=== PATIENT | male | born 1965 | race Caucasian/White ===

== ENCOUNTER 2016-09-01 05:02 | Inpatient (IN) | payer MEDICAID, OTHER ==
[~2016-09-01] VITALS: Ht 167.6 cm; Wt 81.3 kg
[2016-09-01 06:10] LABS: URINE BLOOD (Dip) POC Negative (NEGATIVE)
[2016-09-01] MEDS ORDERED: SOD CHLORIDE 0.9% 1,000 ML IV ONE (07:00)
[2016-09-01 07:11] LABS: ADD UMIC NO; URINE BILIRUBIN (Dip) NEGATIVE (NEGATIVE); URINE BLOOD (Dip) NEGATIVE (NEGATIVE); URINE COLOR LT. YELLOW (YELLOW); URINE GLUCOSE (Dip) NEGATIVE (NEGATIVE); URINE KETONES (Dip) NEGATIVE (NEGATIVE); URINE LEUKOCYTE ESTERASE (Dip) NEGATIVE (NEGATIVE); URINE NITRITE (Dip) NEGATIVE (NEGATIVE); URINE TOTAL PROTEIN (Dip) NEGATIVE (NEGATIVE); URINE UROBILINOGEN (Dip) 0.2 E.U./dL (0.1-1.0)
[2016-09-01 07:12] LABS: ADD SCAN DIFF NO
[2016-09-01 07:19] LABS: BASOPHILS % 0.3 % (0.0-2.0); EOSINOPHILS % 0.3 % (0.0-7.0); HEMATOCRIT 45.1 % (42.0-52.0); HEMOGLOBIN 16.2 g/dl (14.0-18.0); LYMPHOCYTES % 34.3 % (15.0-51.0); MEAN CORPUSCULAR HEMOGLOBIN 32.8 pg (29.0-33.0); MEAN CORPUSCULAR HGB CONC 35.9 g/dl (32.0-37.0); MEAN CORPUSCULAR VOLUME 91.3 fl (82.0-101.0); MEAN PLATELET VOLUME 10.5 fl (7.4-10.4); MONOCYTE # 0.5 10^3/ul (0.3-0.9); MONOCYTES % 6.2 % (0.0-11.0); NEUTROPHIL # 5.1 10^3/ul (1.6-7.5); NEUTROPHILS % 58.7 % (39.0-77.0); PLATELET COUNT 299 10^3/UL (140-415); RED BLOOD COUNT 4.94 10^6/ul (4.70-6.10); RED CELL DISTRIBUTION WIDTH 12.7 % (11.5-14.5); WHITE BLOOD COUNT 8.7 10^3/ul (4.8-10.8)
[2016-09-01 07:34] LABS: POTASSIUM 3.6 mmol/L (3.5-5.1)
[2016-09-01 07:36] LABS: CREATININE 0.65 mg/dl (0.61-1.24)
[2016-09-01 07:37] LABS: CALCIUM 8.9 mg/dl (8.4-10.2)
--- NOTE | 2016-09-01 08:08 | RADRPT ---
PROCEDURE: CT Lumbar Spine without contrast. CLINICAL INDICATION: Leg weakness. Urine retention. Saddle anesthesia. TECHNIQUE: Noncontrast CT of the lumbar spine was performed with multiplanar reformatted images gen erated from the axial acquired data. The administered radiation dose was CTDI vol = 20.57 mGy, DLP = 765.35 mGy-cm. One or more of the following dose reduction techniques were used: Automated exposur e control, Adjustment of the mA and/or kV according to patient size, or Use of iterative reconstruct ion technique. COMPARISON: There are no similar studies submitted for comparison. FINDINGS: Evaluation for cauda equina is limited on CT. There is normal lumbar lordosis. The vertebral body heights are maintained. There is no destructive osseous lesion. There is no acute fracture. There is limited evaluation for epidural fluid collection and limited evaluation of the spinal cord on CT. T12-L1 : There is no disc herniation, spinal canal, or foraminal stenosis. L1-L2 : There is a 1 mm broad-based disk bulge without spinal canal or foraminal stenosis. L2-L3 : There is a 1 mm broad-based disk bulge without spinal canal or foraminal stenosis. L3-L4 : There is mild disk space narrowing. There is 1 mm of grade 1 anterolisthesis with a broad-b ased pseudo disk bulge migrating 3 mm superiorly in the subligamentous region with mild bilateral fa cet arthropathy without spinal canal stenosis. There is severe left with moderate right foraminal s tenosis impinging the exiting left L3 nerve root. L4-L5 : There is a 2 mm circumferential disk bulge with dorsal disk calcification mildly effacing th e bilateral lateral recesses with mild bilateral facet arthropathy with mild spinal canal stenosis. There is mild to moderate bilateral foraminal stenosis. L5-S1 : There is mild disk space narrowing. There is a 3 mm circumferential disk bulge effacing the bilateral lateral recesses with mild bilateral facet arthropathy and mild spinal canal stenosis. T here is severe bilateral foraminal stenosis impinging the exiting bilateral L5 nerve roots. The sacroiliac joints are intact. A Gates catheter is noted. IMPRESSION: There is limited evaluation for epidural fluid collection and limited evaluation of the spinal cord on CT. 1. No acute fracture. 2. L3-L4 minimal grade 1 anterolisthesis with a broad-based pseudo disk bulge migrating 3 mm superio rly with severe left and moderate right foraminal stenosis impinging the exiting left L3 nerve root. 3. L5-S1 circumferential disk bulge effacing the bilateral lateral recesses with mild spinal canal s tenosis. There is severe bilateral foraminal stenosis impinging the exiting bilateral L5 nerve root s. Noncontrast MRI of the lumbar spine may be performed as clinically warranted. Further findings as detailed above. RPTAT: PP .Bebo Olsen MD, Date Time Electronically viewed and signed by .Bebo Olsen MD, on 09/01/2016 08:07 .F/
[2016-09-01] MEDS ORDERED: DEXAMETHASONE 10 MG/ML 1 ML INJ IV ONE (08:30)
[2016-09-01] MEDS ORDERED: morphine 4 MG/ML VIAL IV STA (08:56)
--- NOTE | 2016-09-01 09:26 | ERA ---
ER Documentation Chief Complaint Date/Time DATE: 09/01/16 TIME: 09:16 Chief Complaint Unable to urinate. pain in the lower legs and pelvic pain HPI This 50-year-old male presents for inability urinate for the last 20 hours, shooting pains down the back of his upper thighs, bilateral leg weakness since yesterday. Denies any specific back pain. Denies any fever chills. Is not an IV drug user. Has no other neurological symptoms, no symptoms above the waist except for the suprapubic pain. ROS All systems reviewed and are negative except as per history of present illness. Medications Home Meds No Active Prescriptions or Reported Meds Allergies Allergies: Coded Allergies: No Known Drug Allergy (Verified Allergy, Unknown, 07/25/14) PMhx/Soc Medical and Surgical Hx: pt denies Medical Hx, pt denies Surgical Hx Hx Alcohol Use: No Hx Substance Use: No Hx Tobacco Use: No Smoking Status: Never smoker Physical Exam Vitals Vital Signs Date Time Temp Pulse Resp B/P Pulse Ox O2 Delivery O2 Flow Rate FiO2 09/01/16 15:14 97.9 83 18 131/96 98 Room Air 09/01/16 13:16 75 16 143/99 98 Room Air 09/01/16 11:14 98.3 87 18 128/90 100 Room Air 09/01/16 09:30 72 16 134/91 99 Room Air 09/01/16 08:32 62 16 126/98 100 Room Air 09/01/16 06:43 98.0 62 16 131/94 100 Room Air 09/01/16 05:38 98.3 74 22 141/100 100 Room Air 09/01/16 05:14 97.0 75 20 142/97 98 Physical Exam Const: [] No distress Head: Atraumatic Eyes: Normal Conjunctiva, PERRLA, EOMI ENT: Normal External Ears, Nose and Mouth. Neck: Full range of motion..~ No meningismus. Resp: Clear to auscultation bilaterally Cardio: Regular rate and rhythm, no murmurs Abd: Soft, non tender, suprapubic fullness, normal bowel sounds Skin: No petechiae or rashes Back: No midline or flank tenderness Ext: No cyanosis, or edema Neur: Awake and alert and oriented 3, cranial nerves II through XII intact, no focal deficits, 5 out of 5 strength all extremities distal and proximal Psych: Normal Mood and Affect Result Diagram: 09/01/16 0700 09/01/16 0700 Results 24 hrs Laboratory Tests Test 09/01/16 06:00 09/01/16 06:13 09/01/16 07:00 09/01/16 09:40 Urine Bilirubin NEGATIVE Urine Clarity CLEAR Urine Color LT. YELLOW Urine Glucose NEGATIVE% Urine Hemoglobin NEGATIVE Urine Ketones NEGATIVE Urine Leukocyte Esterase NEGATIVE Urine Nitrite NEGATIVE Urine Specific [place] 1.010 Urine Total Protein NEGATIVE Urine Urobilinogen 0.2 E.U./dL Urine pH 7.0 Bedside Urine Blood Negative Bedside Urine Glucose (UA) Negative Bedside Urine Ketones (LAB) Negative Bedside Urine Leukocyte Esterase (L Negative Bedside Urine Nitrite (LAB) Negative Bedside Urine Protein (LAB) Negative Bedside Urine pH (LAB) 7.5 Anion Gap 19 Basophils # 0.010^3/ul Basophils % 0.3% Blood Urea Nitrogen 9mg/dl Calcium Level 8.9mg/dl Carbon Dioxide Level 27mmol/L Chloride Level 100mmol/L Creatinine 0.65mg/dl Eosinophils # 0.010^3/ul Eosinophils % 0.3% Glucose Level 102mg/dl Hematocrit 45.1% Hemoglobin 16.2g/dl Lymphocytes # 3.010^3/ul Lymphocytes % 34.3% Mean Corpuscular Hemoglobin 32.8pg Mean Corpuscular Hemoglobin Concent 35.9g/dl Mean Corpuscular Volume 91.3fl Mean Platelet Volume 10.5fl Monocytes # 0.510^3/ul Monocytes % 6.2% Neutrophils # 5.110^3/ul Neutrophils % 58.7% Nucleated Red Blood Cells # 0.010^3/ul Nucleated Red Blood Cells % 0.0/100WBC Platelet Count 53482^3/UL Potassium Level 3.6mmol/L Red Blood Count 4.9410^6/ul Red Cell Distribution Width 12.7% Sodium Level 142mmol/L White Blood Count 8.710^3/ul Activated Partial Thromboplast Time 26.3Sec INR International Normalized Ratio 1.00 Prothrombin Time 13.2Sec Prothrombin Time Ratio 1.0 Current Medications Medications (Trade) Dose Ordered Sig/Alf Route PRN Reason Start Time Stop Time Status Last Admin Dose Admin Sodium Chloride (NS) 1,000 ml @ 1,000 mls/hr Q1H ONCE IV 09/01/16 07:00 3/9/17 07:59 DC 09/01/16 07:03 Dexamethasone (Decadron) 10 mg ONCE ONCE IV 09/01/16 08:30 09/01/16 08:31 DC 09/01/16 09:12 Morphine Sulfate (morphine) 4 mg ONCE STAT IV 09/01/16 08:56 09/01/16 08:57 DC 09/01/16 09:12 Ondansetron HCl (Zofran Inj) 4 mg BRIDGE ORDER PRN IV NAUSEA AND/OR VOMITING 09/01/16 13:00 09/02/16 12:59 Acetaminophen (Tylenol Tab) 650 mg ER BRIDGE PRN PO MILD PAIN/FEVER 09/01/16 13:00 09/02/16 12:59 Procedures/MDM Patient with compression of lesion suspicious for cauda equina syndrome. Currently no demonstratable leg weakness on physical exam of the patient did have urinary retention and shooting pain down his legs as well as reported leg weakness consistent with cauda equina. Indwelling Gates was placed which led to initially 1300 cc of urine and continued drainage up to 1600 cc. Patient had reported metal shrapnel in his eye from an old injury. Administered 10 mg of IV Decadron as well as 4 mg of morphine as patient had some pain shooting down legs but minimal pain after relief from Gates catheterization. CT with contrast was obtained because of reported shrapnel. Shows a circumferential compressive lesion with severe stenosis at L5. I spoke with Dr. Foss, neurosurgeon on-call who requested a preop laboratories as well as CT myelogram. I spoke with Dr. Glez, radiologist, who recommended that we obtain a x-ray of the orbits to see if there is actually any metallic foreign body within the eye, as he believes the MRI is far superior study. Read the x-ray along with Dr. Glez believes that the tiny opacities are most likely artifact as there is an identical pattern on 2 different views. Her proceeding with MRI currently. Patient did have difficulty standing and did have increasing leg numbness in the emergency room. He still has 5 out of 5 strength on testing however when he stands up he is legs start to shake because they feel weak. Spoke with Dr. Estrada will be admitting the patient. Dr. FOSS called me in the emergency room and had read the MRI and saw no surgical need from a compressive lesion that would recommend his symptoms but does recommend neurology follow-up. I have paged Dr. cohen have not received a callback from him. He'll be admitted to the medical surgical floor for neurological evaluation. EKG interpretation: Normal sinus rhythm rate of 61, normal axis, no ST or T- wave changes concerning for acute ischemia Chest x-ray interpretation: No acute process, no obvious dental, pneumothorax, no infiltrates, no fractures X-ray orbits interpretation: No foreign body identified, no fractures. Departure Diagnosis: Primary Impression: Lumbar spine root compression Additional Impressions: Bilateral leg weakness Urinary retention Condition: Serious WILFREDO ISBELL DO Sep 01, 2016 09:26
[2016-09-01 10:04] LABS: PROTIME 13.2 Sec (12.2-14.2)
[2016-09-01 10:05] LABS: PARTIAL THROMBOPLASTIN TIME 26.3 Sec (25.0-35.0)
--- NOTE | 2016-09-01 11:09 | RADRPT ---
PROCEDURE: XR orbits. CLINICAL INDICATION: Orbits for foreign body, MRI. TECHNIQUE: 3 views of the facial bones and are better are available for review. COMPARISON: No prior studies are available for comparison. FINDINGS: The orbits are intact. No orbital fracture is identified. The orbital rims are unremarkable. The facial bones are unremarkable. No nasal fracture is seen. No sinus air-fluid collection is seen. The soft tissues are unremarkable. No radiopaque foreign body is seen. IMPRESSION: 1. No radiopaque foreign body identified. RPTAT: [facility] Physician Virgilio Date Time Electronically viewed and signed by Physician Virgilio on 09/01/2016 11:09 /
--- NOTE | 2016-09-01 12:29 | RADRPT ---
PROCEDURE: Chest x-ray CLINICAL INDICATION: Preop TECHNIQUE: Chest single view COMPARISON: 07/26/2014 FINDINGS: The heart is normal in size. The pulmonary vessels are normal in caliber. The lungs are clear. Th e costophrenic angles are sharp. The visualized bony thorax is unremarkable. IMPRESSION: No acute cardiopulmonary disease. RPTAT: HH .Arnaud Romero MD, Date Time Electronically viewed and signed by .Arnaud Romero MD, on 09/01/2016 12:29 .W/
[2016-09-01] MEDS ORDERED: ONDANSETRON 4 MG INJ IV PRN ×2 (13:00→16:30)
[2016-09-01] MEDS ORDERED: ACETAMINOPHEN 325 MG TAB PO PRN ×2 (13:00→16:30)
[2016-09-01 15:14] VITALS: TEMP 97.9
[2016-09-01 16:00] VITALS: BP 133/91; RESP 16
--- NOTE | 2016-09-01 16:15 | RADRPT ---
PROCEDURE: MR Lumbar Spine without contrast. CLINICAL INDICATION: Pain and numbness in both legs. Unable to urinate. Evaluate for cauda equina syndrome. TECHNIQUE: Multiplanar multisequence MRI of the lumbar spine was performed. COMPARISON: No similar studies are submitted for comparison. FINDINGS: There is a normal lumbar lordosis. The vertebral body heights are maintained. There is no destructive osseous lesion. There are Modic type 1 degenerative changes at L5-S1. Otherwise there is no abnormal bone marrow e lenore. There is disk desiccation from L3-L4 to L5-S1. The conus medullaris is at the L1 level. There is abnormal T2 hyperintense signal within the conus which is not significantly expansile at th e T12-L1 level compatible spinal cord edema. The cauda equina is otherwise unremarkable given limitations of contrast. T12-L1 : There is no disc herniation, spinal canal, or foraminal stenosis. L1-L2 : There is no disc herniation, spinal canal, or foraminal stenosis. L2-L3 : There is no disc herniation, spinal canal, or foraminal stenosis. L3-L4 : There is mild to moderate disk space narrowing. There is 1 mm of grade 1 anterolisthesis wi th a 2 mm broad-based disk pseudo disk bulge and mild bilateral facet arthropathy without spinal can al stenosis. There is moderate bilateral foraminal stenosis contacting the exiting bilateral L3 ner ve roots. L4-L5 : There is a 1 mm circumferential disk bulge with dorsal annular fissure with mild bilateral f acet arthropathy without spinal canal stenosis. There is mild left with mild to moderate right fora nicolas stenosis. L5-S1 : There is a 1 mm circumferential disk bulge without spinal canal stenosis. There is moderate to severe right and mild to moderate left foraminal stenosis with impingement of the exiting right L5 nerve root. The paraspinal musculature are within normal limits. IMPRESSION: 1. Spinal cord T2 hyperintense signal within the conus at the T12-L1 level most compatible with carol ma which is nonspecific. Differential diagnosis includes infectious/inflammatory myelitis, demyelin ation, less likely intramedullary lesion, and unlikely spinal cord infarction cannot be entirely exc luded. Postcontrast imaging may be performed as clinically warranted. 2. Multilevel degenerative changes most pronounced at L5-S1 where there is a minimal circumferential disk bulge with moderate to severe right and mild to moderate left foraminal stenosis with impingem ent of the exiting right L5 nerve root. 3. No acute compression fracture. Further findings as detailed above. These findings were discussed with Dr. Garcia at 04:11 p.m. on September 01, 2016. RPTAT: PP .Bebo Olsen MD, MD Date Time Electronically viewed and signed by .Bebo Olsen MD, on 09/01/2016 16:14 .F/
--- NOTE | 2016-09-01 16:28 | RADRPT ---
PROCEDURE: MRI Thoracic Spine. CLINICAL INDICATION: Mid back pain TECHNIQUE: An MRI of the thoracic spine was performed on a 1.5 hi scanner utilizing the followi ng sequences: Sagittal and axial T2 weighted, axial gradient echo, sagittal T1 weighted and sagittal T2 fat sat COMPARISON: None. FINDINGS: There is a normal kyphosis of the thoracic spine. The vertebral heights and alignment are maintaine d. The marrow signal is unremarkable. There is T2 hyperintensity of the conus medullaris at T12-1 with probable minimal expansion which li klaudia represent infectious/inflammatory etiologies. Other differential consideration includes neoplas m, ischemia or demyelination. Recommend follow-up MRI with contrast for further evaluation. There are multilevel mild degenerative changes of thoracic spine with decreased disk spaces and disk desiccation more pronounced at T6-T7, T7-T8 and T11-T12. T1-2 through T6-7: No significant disk bulge or protrusion is seen. No significant spinal canal or foraminal stenosis. At T7-8, there is 2-3 mm central disk protrusion without significant spinal canal or foraminal steno sis. T8-9 through T11-12: No significant disk bulge or protrusion is seen. No significant spinal canal o r foraminal stenosis. There is 9 mm T2 hyperintense cyst in the superior pole of the right kidney. There is 4 mm due to hyperintense cyst in the right hepatic lobe. IMPRESSION: 1. Signal abnormality of the conus medullaris with probable minimal expansion which likely represen t infectious/inflammatory etiologies. Other differential consideration includes neoplasm, ischemia o r demyelination. Follow-up MRI with contrast can be obtained for further evaluation as clinically wa rranted. 2. Multilevel mild discogenic disease, more pronounced at T6-T7, T7-T8 and T11-T12. 3. At T7-8, there is 2-3 mm central disk protrusion without significant spinal canal or foraminal s tenosis. Findings were discussed with Dr. Garcia by Dr. Olsen 09/01/2016 at 04:11 p.m. RPTAT: HH .Gertrudis Grewal MD, Date Time Electronically viewed and signed by .Gertrudis Grewal MD, on 09/01/2016 16:27 .N/
[2016-09-01] MEDS ORDERED: morphine 2 MG INJ IV PRN (16:30)
[2016-09-01] MEDS ORDERED: BISACODYL (EC) 5 MG TAB PO PRN (16:30)
[2016-09-01] MEDS ORDERED: MAGNESIUM HYDROXIDE 30ML CUP PO PRN (16:30)
[2016-09-01] MEDS ORDERED: HYDROCODONE/APAP (5/325) TAB PO PRN (16:30)
[2016-09-01] MEDS ORDERED: NACL 0.9% 3 ML SYG IV SCH (16:30)
[2016-09-01] MEDS ORDERED: hydrALAzine 20 MG INJ IV PRN (17:00)
--- NOTE | 2016-09-01 18:03 | HP ---
DATE OF ADMISSION: 09/01/2016 TIME OF EVALUATION: 1530 hours. REASON FOR ADMISSION: Unable to urinate, pain in the bilateral lower legs and pelvis. CONSULTATIONS: 1. Dr. Neo Foss, neurosurgery. 2. Dr. Azucena Hamilton, neurology. HISTORY OF PRESENT ILLNESS: This is a 50-year-old male who denies any past medical history who came to the emergency room with a chief complaint of bilateral lower extremity weakness and inability to urinate that started since 5 :00 p.m. on 08/31/2016. The patient verbalized that he has been doing fine until the afternoon of 08/31/2016, then he started feeling bilateral lower extremity weakness and achy pain with numbness. He felt like he wanted to urinate. He stood up, he tried to walk to the restroom, but he could not make it to the restroom and had to sit down. He tried urinating, but could not urinate. He went to a local urgent care and he was given some medications and was sent home. The patient tried to urinate again at 9:00 p.m. on 08/31/2016 without any success. The patient verbalized that he was feeling numb in bilateral gluteal area, all the way back to the feet posteriorly. The patient denied any fecal incontinence. The patient was complaining of urinary overflow incontinence. He denied any fevers or headache. The patient denied any prior similar history. The patient denied any prior injuries, including any back injury. In the emergency room, the patient underwent multiple imaging studies. The patient's lumbar spine MRI showed no acute compression fracture. The patient's lumbar CT also showed no acute fractures. In the emergency room, the patient had a Gates catheter inserted with output of urine. The patient was treated with IV morphine, IV Decadron and IV fluids in the emergency room. A neurosurgery consult was called. PAST MEDICAL HISTORY: Denies. PAST SURGICAL HISTORY: Denies. HOME MEDICATIONS: None. ALLERGIES: NO KNOWN DRUG ALLERGIES. SOCIAL HISTORY: The patient lives at home with his family. 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 Denies any use of tobacco or illicit drugs. Drinks socially. FAMILY HISTORY: Positive for stroke and hypertension in younger sister. REVIEW OF SYSTEMS: A 12-point review of systems was negative other than what is mentioned in history of present illness. PHYSICAL EXAMINATION: VITAL SIGNS: Temperature 97.9, pulse rate 80, respiratory rate 18, blood pressure 131/96, oxygen saturation 98% on room air. GENERAL: This is a well-built, well-nourished male lying in bed in no apparent distress. HEENT: Head normocephalic and atraumatic. Eyes: Anicteric sclerae. Conjunctivae clear. ENT: Nasal septum is midline. Oral mucosa is dry. NECK: Supple. No JVD noticed. RESPIRATORY: Bilaterally clear to auscultation. No adventitious breath sounds heard. No use of accessory muscles of respiration. CARDIAC: Regular rate and rhythm. No murmurs heard. GASTROINTESTINAL: Abdomen soft, nontender and nondistended. Bowel sounds positive in all 4 quadrants. GENITOURINARY: Deferred. EXTREMITIES: No cyanosis, no clubbing, no edema. Peripheral pulses palpable. NEUROLOGIC: The patient is awake, alert and oriented. Equal strength in bilateral upper and lower extremities. No sensory loss in bilateral lower extremities. LABORATORY AND DIAGNOSTIC DATA: WBC 8.7, hemoglobin 16.4, hematocrit 45.1, platelet count 299. Sodium 142, potassium 3.6, chloride 100, carbon dioxide 27 , anion gap 19, BUN 9, creatinine 0.65, glucose 100, calcium 8.9 and PT 13.2, INR 1.03, PTT 26.3. Urinalysis: Urine nitrite negative, leukocyte esterase negative. Chest x-ray: No acute cardiopulmonary disease. No radiopaque foreign body identified. Lumbar spine CT. No acute fracture. At L3 to L4, minimal grade I anterolisthesis with a broad based pseudo disk bulging migrating 3 mm superiorly with severe left and moderate right foraminal stenosis impinging the exiting left L3 nerve root, the site of circumferential disk bulge affecting the bilateral lateral recess with mild spinal canal stenosis. There is severe bilateral foraminal stenosis impinging the exiting bilateral L5 nerve roots. Lumbar spine MRI: Spinal cord T2 hyperintense signal with the conus at the T2 to L1 level, most compatible with edema which is nonspecific. Differential diagnosis includes infectious/inflammatory myelitis, demyelination, less likely intramedullary lesion and unlikely spinal cord infarction. Multilevel degenerative changes most pronounced at L5 to S1. Thoracic spine MRI: Signal abnormality of the conus medullaris with probable minimal expansion, most likely representing infectious/inflammatory etiologies. Other differential considerations include neoplasm, ischemia or demyelination. At T7 to T8, there is a 2 to 3 mm central disk protrusion without significant spinal canal or foraminal stenosis. 12-lead EKG: Normal sinus rhythm. IMPRESSION: This is a 50-year-old male who came to the emergency room with chief complaint of bilateral lower extremity paresthesias and inability to urinate who will be admitted here for further treatment and evaluation. ASSESSMENT AND PLAN: 1. Acute onset of bilateral lower extremity paresthesias and inability to urinate. Etiology unclear. The patient's lumbar spine MRI showing signal abnormality at the conus medullaris with probable minimal expansion, most likely representing infectious/inflammatory etiologies. A neurosurgery consult has already been obtained. As per the discussion with neurosurgeon, the patient will be started on Decadron. The patient does not require any surgical intervention. However, the patient needs neurology evaluation to evaluate for any possible underlying demyelination. Hence, a neurology consult will be ordered. A physical therapy evaluation will be ordered. 2. Urinary retention. Etiology unclear, most probably secondary to #1. The patient will have a Gates catheter inserted after measuring the post-void/post Gates removal residual and if the patient has high residual. Plan. The patient will be admitted to inpatient medical/surgical floor. The patient will be started on a regular diet. The patient will be started on DVT prophylaxis and gastrointestinal prophylaxis. Activities will be bedrest. The patient will remain a FULL CODE. The rest of the patient's management will be based on the clinical course, the results of diagnostic studies, and input from consultants. Based on the patient's clinical presentation, he most probably requires at least 2 midnights' stay for further management and evaluation of the clinical presentation. The case and management of this patient was fully discussed with Dr. Wood. Approximately 50 minutes was spent on the history and physical of this patient. JUICE WOOD MD AM/NTS Conf#: [id number] DID#: [id number] CC: RAFAEL CAREY MD;*EndCC* MTDD
[2016-09-01] MEDS: DEXAMETHASONE 4 MG/ML 1 ML INJ IV SCH ×2 (18:25→23:47)
[2016-09-01] MEDS: D5W-0.45 NACL + KCL 20 MEQ 1,000 ML IV SCH (18:26)
[2016-09-01 19:25] LABS: CANNABINOIDS Negative (NEGATIVE)
[2016-09-01 19:27] LABS: OPIATES Positive (NEGATIVE)
[2016-09-01 19:31] LABS: BARBITURATES Negative (NEGATIVE)
[2016-09-01 19:32] LABS: BENZODIAZEPINES Negative (NEGATIVE); COCAINE Negative (NEGATIVE)
[2016-09-01 19:44] VITALS: BP 122/77; RESP 18
[2016-09-01] MEDS: FAMOTIDINE 20 MG TAB PO SCH (20:28)
--- NOTE | 2016-09-02 01:52 | RADRPT ---
AMENDMENT: 09/02/2016 2:32:03 AM Dniesh Varma. PROCEDURE: MR Cervical Spine without and with contrast. CLINICAL INDICATION: Lower extremity weakness. TECHNIQUE: The study was performed utilizing a Signa HDxt 3 Natalie magnet. The following pulse seq uences were obtained: Axial T1, axial T2, sagittal T1, and sagittal T2 with and without fat saturat ion images. After the administration of 10 cc Magnevist intravenous contrast, axial T1 weighted grayson ges with fat saturation and sagittal T1-weighted images without fat saturation were obtained. Image s were reviewed on a PACS workstation. COMPARISON: None. FINDINGS: Cervical vertebral body heights, signal intensity and alignment are within normal limits. There is no acute fracture or subluxation. The cervical spinal cord is of normal caliber and signa l. There is no abnormal enhancement. At C2-C3, the disk height and signal are within normal limits. There is no central canal or neural foraminal stenosis. At C3-C4, there is disk desiccation and minimal loss of disk height. There is a mild posterior disk osteophyte complex resulting in mild central canal stenosis. There are moderate right and mild lef t neural foraminal stenosis. At C4-C5, there is disk desiccation and minimal loss of disk height. There is a mild posterior disk osteophyte complex resulting in mild central canal stenosis. There is moderate bilateral neural fo raminal stenosis. At C5-C6 , there is dislocation and mild to moderate loss of disk height. There is a mild diffuse d isk osteophyte complex resulting in mild central canal stenosis. There is moderate to severe bilater al neural foraminal stenosis. At C6-C7 , there is disk desiccation and moderate loss of disk height. There is moderate left and m ild right neural foraminal stenosis. At C7-T1, the disk height and signal are within normal limits. There is no central canal or neural foraminal stenosis. There is no paraspinal mass or collection. 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 There is multilevel central canal and neural f oraminal stenosis as described. No abnormal cord signal or enhancement. .Dinesh Ross MDMD Date Time Electronically viewed and signed by .Dinesh Ross MD, on 09/02/2016 02:31 .T/
--- NOTE | 2016-09-02 02:27 | RADRPT ---
PROCEDURE: MR thoracic spine with contrast. CLINICAL INDICATION: Back pain. TECHNIQUE: The study was performed utilizing an HDxt 3 Natalie magnet. Sagittal T2-weighted images were obtained. After the administration of 10 cc Magnevist intravenous contrast, sagittal and axial T1-weighted images with fat saturation were obtained. Images were reviewed on a PACS workstation. COMPARISON: Noncontrast MR done 09/01/2016. FINDINGS: Thoracic vertebral body heights and alignment are within normal limits. The disk height a nd signals are within normal limits. There is no central canal or neural foraminal stenosis. There is no paraspinal mass or collection. There is no abnormal enhancement. IMPRESSION: No abnormal enhancement. .Dinesh Ross MD, Date Time Electronically viewed and signed by .Dinesh Ross MD, MD on 09/02/2016 02:27 .T/
--- NOTE | 2016-09-02 02:39 | RADRPT ---
PROCEDURE: MRI Brain with and without contrast. CLINICAL INDICATION: Lower extremity weakness. TECHNIQUE: An MRI of the brain was performed on a Signa HDxt 3 hi scanner utilizing the followi ng sequences: Axial T1, axial T2 FLAIR, axial T2 FSE, coronal T2 gradient echo, sagittal T1 FLAIR, s agittal T2 FLAIR and axial diffusion-weighted (EPI technique, [id number]) with ADC mapping. After the administration of 10 cc Magnevist intravenous contrast, coronal, sagittal and axial T1-weighted imag es with fat saturation were obtained. Images were viewed on a PACS workstation. COMPARISON: None. FINDINGS: The ventricles and cortical sulci are within normal limits for patient's age. There are scattered s mall foci of increased T2/FLAIR signal intensity within the periventricular and subcortical white ma tter. There are small foci of restricted diffusion within the right parietal lobe extending to the splenium of the right corpus callosum. There are small foci of restricted diffusion within the left parieto-occipital lobe cortex. There is no mass effect or midline shift. There is no acute intrac ranial hemorrhage or abnormal extra-axial collection. There is no abnormal dural, leptomeningeal or parenchymal enhancement. Normal signal voids are seen within the bilateral cavernous carotids. Th e regions of the sella, pineal gland and cervicomedullary junction are unremarkable. Visualized par anasal sinuses and mastoid air cells are clear. IMPRESSION: Small, acute lacunar infarcts within bilateral parieto-occipital lobes and splenium of the right cor pus callosum. Scattered small T2 hyperintensities within the white matter are nonspecific but could represent micr oangiopathic ischemic disease, complicated migraines or vasculitides. .Dinesh Ross MD, MD Date Time Electronically viewed and signed by .Dinesh Ross MD, MD on 09/02/2016 02:39 .T/
[2016-09-02] MEDS: DEXAMETHASONE 4 MG/ML 1 ML INJ IV SCH ×3 (06:00→17:08)
[2016-09-02 06:04] LABS: ADD SCAN DIFF NO
[2016-09-02 06:23] LABS: ALBUMIN 4.4 g/dl (3.3-4.9)
[2016-09-02 06:24] LABS: HEMATOCRIT 46.3 % (42.0-52.0); HEMOGLOBIN 16.4 g/dl (14.0-18.0); LYMPHOCYTES # 1.6 10^3/ul (0.8-2.9); LYMPHOCYTES % 22.6 % (15.0-51.0); MEAN CORPUSCULAR HEMOGLOBIN 32.5 pg (29.0-33.0); MEAN CORPUSCULAR HGB CONC 35.4 g/dl (32.0-37.0); MEAN CORPUSCULAR VOLUME 91.9 fl (82.0-101.0); MEAN PLATELET VOLUME 10.8 fl (7.4-10.4); MONOCYTE # 0.1 10^3/ul (0.3-0.9); MONOCYTES % 1.8 % (0.0-11.0); NEUTROPHIL # 5.4 10^3/ul (1.6-7.5); NEUTROPHILS % 75.2 % (39.0-77.0); PLATELET COUNT 346 10^3/UL (140-415); POTASSIUM 3.9 mmol/L (3.5-5.1); RED BLOOD COUNT 5.04 10^6/ul (4.70-6.10); RED CELL DISTRIBUTION WIDTH 12.8 % (11.5-14.5); WHITE BLOOD COUNT 7.2 10^3/ul (4.8-10.8)
[2016-09-02 06:25] LABS: MAGNESIUM 2.1 mg/dl (1.7-2.5); PHOSPHORUS 3.4 mg/dl (2.5-4.9)
[2016-09-02 06:26] LABS: ALBUMIN/GLOBULIN RATIO 1.37; BILIRUBIN,INDIRECT 0.7 mg/dl (0-1.1); BILIRUBIN,TOTAL 0.7 mg/dl (0.2-1.3); CHOL/HDL RATIO 4.1 RATIO; CREATININE 0.64 mg/dl (0.61-1.24); TOTAL PROTEIN 7.6 g/dl (6.1-8.1)
[2016-09-02 06:55] LABS: THYROID STIMULATING HORMONE 0.374 MIU/L (0.465-4.680)
[2016-09-02 08:00] VITALS: BP 118/77; RESP 18
[2016-09-02] MEDS: FAMOTIDINE 20 MG TAB PO SCH ×2 (08:14→21:39)
[2016-09-02 10:28] VITALS: Ht 167.6 cm; Wt 81.3 kg
[2016-09-02] MEDS: D5W-0.45 NACL + KCL 20 MEQ 1,000 ML IV SCH (12:07)
--- NOTE | 2016-09-02 14:03 | OPR ---
DATE OF OPERATION: 09/01/2016 CONSULTING SERVICE: Neurosurgery. REQUESTING PHYSICIAN: Kaden Hernández MD, with the emergency department. HISTORY OF PRESENT ILLNESS: This is a 50-year-old male without any past medical history and in over all good health, who started having new onset of urinary retention yesterday. The patient has also developed decreased sensation in the perineal area, as well as some pain and paraesthesia radiating down the bilateral lower extremities. The patient has been able to ambulate without any difficulty. Apparently, the patient presented once yesterday with urinary incontinence and has now presented a gain to the emergency department with urinary retention. A Gates catheter was put in in the emergen cy department, that took out over 1000 mL of urine. I was consulted by the emergency department for probable cauda equina syndrome. The patient initially had received just a CT of the lumbar spine b ecause it was believed that the patient had some type of a shrapnel in one of his eyes from an injur y to the eye in the past. I asked for a CT myelogram to be done to further assess the patient's tho racic and lumbar spines; however, the radiologist has reviewed the patient's x-rays of the orbits an d felt that MRI of the thoracic and lumbar spines can be done and that has been done subsequently. The patient denies any prior episodes of urinary retention or decreased sensation in the lower extre mities or the peroneal area in the past. The patient denies any history of malignancy in the past. He also denies any decreased vision or loss of vision temporarily. The patient also denies any brock n or decreased sensation or weakness in his bilateral upper extremities. He also denies any neck o r low back pain. PAST MEDICAL HISTORY: None. PAST SURGICAL HISTORY: None. HOME MEDICATIONS: None. ALLERGIES: NO KNOWN DRUG ALLERGIES. SOCIAL HISTORY: The patient lives with his family. 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 He does not smoke tobacco. He does not use illicit or recreational drugs. He does not drink alcoholic beverag es. FAMILY HISTORY: Noncontributory. REVIEW OF SYSTEMS: Please see above for positives and negatives. PHYSICAL EXAMINATION: The patient is lying in bed next to his . He is awake, alert. He is aleyda ented x4. His language is fluent in [place] and I am able to communicate with the patient with the help of one of the [place]er-speaking nurses on the floor. His face is symmetric. Tongue is midline. Extraocular movements are intact. Pupils are equally round and reactive to light. Muscle bulk an d tone is normal for bilateral upper and lower extremities. Sensation to light touch is preserved f or bilateral upper and lower extremities, except for the perineal area and the buttocks region. [place] p tendon reflexes are 1+ for bilateral upper and lower extremities. Motor strength in the bilateral upper and lower extremities are at least 5-/5 proximally and distally. Straight leg raise does not cause any radiating pain down the bilateral lower extremities greater than 30 degrees. The patient has rectal tone present, although it may be slightly decreased. Gait testing has been deferred per patient request. IMAGING STUDIES: The patient has received MRI of the thoracic and lumbar spines without contrast at my request. The patient does not show any evidence of any significant central or lateral recess amira nosis. There is around moderate bilateral L5-S1 neural foraminal stenosis that could be putting pre ssure on the exiting bilateral L5 nerve roots; however, there is no significant stenosis or compress ion of the cauda equina or the thecal sac. There is also no canal stenosis at the thoracolumbar panda ction; however, there is a subtle T2 hyperintensity in signal changes in the conus medullaris that h as also been noted by the radiologist. The conus does not seem to be expanded, that could be worriso me for an intramedullary tumor, as the radiologist has also noted it is possibly related to an infla mmatory process and less likely an infectious etiology. It may be related to a demyelinating diseas e. ASSESSMENT AND PLAN: This is a patient with new onset of urinary retention since yesterday, as well as some saddle anesthesia. As discussed above, the patient does not have cauda equina or conus med ullaris syndrome; however, the reason for the patient's acute onset symptomatology seems to be more related to an intrinsic disease process involving the spinal cord and the conus medullaris specifica lly. The patient has been started on empiric corticosteroid treatments, as I have explained to the admitting hospitalist, Jamin Brito MD, the patient will require a neurology consultation for furt her evaluation and treatment of the patient's condition. I have also ordered MRI of the brain and c ervical spines with and without contrast, as well as MRI of the thoracic spine with contrast, to be able to further evaluate the patient for other possible etiologies. There is no acute neurosurgical intervention indicated. Most likely the treatment of this condition is nonsurgical. Neurosurgery can be consulted again on an as needed basis. In addition, at my request, the patient's Gates nadia ter was removed. The patient was followed up for several hours. He does not feel his bladder getti ng full. The bladder scan revealed his bladder to have more than 350 mL of urine and the patient is unable to void again. A new Gates catheter has been reinserted. Dictated By: CAMILA NGUYEN MD, SA/HELIO Conf#: [id number] DID#: [id number]
--- NOTE | 2016-09-02 14:12 | CONS ---
Date/Time of Note Date/Time of Note DATE: 09/02/16 TIME: 13:37 Assessment/Plan Assessment/Plan Chief Complaint/Hosp Course 50 year old male with newly diagnosed uncontrolled diabetes, hyperlipidemia presenting with sudden onset of LE numbness below the waist with urinary incontinence, initiated on steroids. Spine imaging suggestive of edema at T12/L1 possible inflammatory/demyelinating etiology pending further workup. MRI Brain also shows punctate bilateral infarcts unclear etiology. Recommendations: 1. T12/L1 edema -will suggest a lumbar puncture to further evaluate for potential underlying inflammatory condition please send CSF Cell Count, Glucose, Protein, Fungal culture, Bacterial culture , Cytology, Flow Cytometry (paired blood test), IgG index, Oligoclonal bands VZV IgG/IgM and PCR if possible, HSV, LEROY, VDRL -may repeat MRI Lumbar spine post contrast imaging only to evaluate for enhancement of the conus and rule out underlying lesion -may continue on steroid regimen for now if symptoms are improving with appropriate sliding scale and PPI 2. bilateral parietal occipital strokes, right splenium stroke -suspect an underlying infectious/inflammatory etiology -2 sets of blood cultures -recheck hemoglobin A1C -ECHO with a bubble study -MRA Head/Neck to evaluate vasculature, r/o vasculitis may hold DVT ppx in anticipation of lumbar puncture PT/OT evaluation will continue to follow Problems: Consultation Date/Type/Reason Admit Date/Time Sep 01, 2016 at 12:45 Date of Consultation: Sep 02, 2016 Type of Consultation: Neurology Reason for Consultation bilateral LE numbness, urinary incontinence T12-L1 edema at conus medullaris bilateral punctate cerebral infarcts Referring Provider: JUICE SESAY NP Hx of Present Illness 50 year old male with previous history of smoking quit over 14 years ago from [facility] 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 He was picking up a car from the mechanics when these symptoms began, when he tried to walk out of the car he developed the sudden onset of numbness. The numbness described is mostly in the bilateral gluteal region radiating to the posterior aspect of the thighs involving genital region as well, sparing the inner thighs. He is unable to control his urine, denies bowel incontinence however he not had a bowel movement in several days. He denies any fevers, no recent travel, no recent rashes or any infections , no sick contacts. On admission jruado catheter was placed, he was given IV morphine, IV decadron and fluids. Neurosurgery contacted on admission, suggested IV steroids, no surgical management required at this time. MRI Lumbar spine showed T2 hyperintense signal within conus at T12-L1 compatible with edema, differentials include infectious/inflammatory myelitis/ demyelination possible spinal cord infarction multilevel degenerative changes L5-S1 moderate to severe right foraminal stenosis, impingement on right L5 nerve root MRI Thoracic Spine signal abnormality of conus, multilevel disc degenerative disease no cord lesions no abnormal enhancement MRI Brain without contrast: punctate infarcts within bilateral parietal occipital lobe and splenium right corpus callosum Pertinent Labs: WBC wnl HIV negative LFTs wnl ESR: 45 LDL: 170 HBA2C: 15.5% LE numbness sensation denies pain urinary incontinence decreased sensation in genital region as well Past Medical History Medical History: no pertinent history Past Surgical History Past Surgical Hx: no surgical history Family History Significant Family History: no pertinent family hx Social History Alcohol Use: none Smoking Status: Former smoker Drug Use: none Exam/Review of Systems Vital Signs Vitals Vital Signs Date Time Temp Pulse Resp B/P Pulse Ox O2 Delivery O2 Flow Rate FiO2 09/02/16 08:00 98.5 86 18 118/77 96 09/01/16 15:14 Room Air Intake and Output 09/01/16 09/01/16 09/02/16 15:00 23:00 07:00 Intake Total 0 ml 0 ml 1040 ml Output Total 2500 ml 0 ml 1550 ml Balance -2500 ml 0 ml -510 ml Exam awake and alert oriented to self, hospital, and date tamazight speaking primarily, absent aphasia follows commands well no neglect no rashes on skin CN: HARDY, VFF, EOMI no nystagmus no facial asymmetry palate upgoing uvula midline scm/trap intact tongue midline Motor: strength is full and equal in all extremities 5/5 throughout in LE as well no atrophy normal muscle bulk and tone, decreased rectal tone Sensory: no sensory level appreciated throughout abdomen or back decreased pin prick sensation below waist on bilateral buttox region as well as posterior thighs up to the knees inner thigh sensation is intact , decreased sensation in L1 and S1,S2 dermatomal region Reflexes 1+ UE, 1+ KJ, trace AJ toes are downgoing Coordination no ataxia Results Result Diagram: 3/10/17 0510 3/10/17 0510 Results 24 hrs Laboratory Tests Test 09/01/16 18:15 09/02/16 05:01 09/02/16 05:10 Urine Amphetamines Screen Negative Urine Barbiturates Negative Urine Benzodiazepines Screen Negative Urine Cannabinoids Negative Urine Cocaine Screen Negative Urine Opiates Screen Positive Free Thyroxine 0.90 Alanine Aminotransferase (ALT/SGPT) 36 Albumin 4.4 Albumin/Globulin Ratio 1.37 Alkaline Phosphatase 42 Anion Gap 20 H Aspartate Amino Transf (AST/SGOT) 27 Basophils # 0.0 Basophils % 0.0 Blood Urea Nitrogen 11 C-Reactive Protein < 0.5 Calcium Level 9.0 Carbon Dioxide Level 21 Chloride Level 104 Cholesterol Level 239 H Cholesterol/HDL Ratio 4.1 Creatinine 0.64 Direct Bilirubin 0.00 Eosinophils # 0.0 Eosinophils % 0.0 Erythrocyte Sedimentation Rate 45 H Globulin 3.20 Glucose Level 142 # HDL Cholesterol 57 HIV (1&2) Antibody NEGATIVE Hematocrit 46.3 Hemoglobin 16.4 Hemoglobin A1c 15.5 H Indirect Bilirubin 0.7 LDL Cholesterol, Calculated 170 Lymphocytes # 1.6 Lymphocytes % 22.6 Magnesium Level 2.1 Mean Corpuscular Hemoglobin 32.5 Mean Corpuscular Hemoglobin Concent 35.4 Mean Corpuscular Volume 91.9 Mean Platelet Volume 10.8 H Monocytes # 0.1 L Monocytes % 1.8 Neutrophils # 5.4 Neutrophils % 75.2 Nucleated Red Blood Cells # 0.0 Nucleated Red Blood Cells % 0.0 Phosphorus Level 3.4 Platelet Count 346 Potassium Level 3.9 Red Blood Count 5.04 Red Cell Distribution Width 12.8 Sodium Level 141 Thyroid Stimulating Hormone (TSH) 0.374 L Total Bilirubin 0.7 Total Protein 7.6 Triglycerides Level 61 White Blood Count 7.2 Medications Medications Current Medications Ondansetron HCl (Zofran Inj) 4 mg Q6H PRN IV NAUSEA AND/OR VOMITING; Start 09/01 at 16:30 Acetaminophen (Tylenol Tab) 650 mg Q6H PRN PO PAIN LEVEL 1-3 OR FEVER; Start at 16:30 Acetaminophen/ Hydrocodone Bitart ([place] (5/325)) 1 tab Q6H PRN PO MODERATE PAIN LEVEL 4-6; Start 09/01/16 at 16:30 Morphine Sulfate (morphine) 2 mg Q4H PRN IV SEVERE PAIN LEVEL 7-10; Start at 16:30 Magnesium Hydroxide (Milk Of Mag) 30 ml DAILY PRN PO CONSTIPATION; Start at 16:30 Bisacodyl (Dulcolax) 5 mg DAILY PRN PO CONSTIPATION; Start 09/01/16 at 16:30 Famotidine (Pepcid) 20 mg Q12 PO Last administered on 09/02/16 08:14; Admin Dose 20 MG; Start 09/01/16 at 21:00 Hydralazine HCl (Apresoline) 10 mg Q6H PRN IV SBP>160; Start 09/01/16 at 17:00 Dexamethasone (Decadron) 4 mg Q6 IV Last administered on 09/02/16 12:07; Admin Dose 4 MG; Start 09/01/16 at 18:00 Influenza Virus Vaccine (Fluzone) 0.5 ml ONCE ONCE IM* ; Start 09/02/16 at 20:00 ; Stop 09/02/16 at 20:01 CARMEN ALLISON MD Sep 02, 2016 13:48
--- NOTE | 2016-09-02 14:29 | PN ---
Date/Time of Note Date/Time of Note DATE: 09/02/16 TIME: 14:18 Assessment/Plan VTE Prophylaxis VTE Prophylaxis Intervention: SCD's Lines/Catheters IV [facility] Type (from [facility]): Peripheral IV Urinary Cath still in place: Yes Reason Cath still needed: urinary retention Assessment/Plan Chief Complaint/Hosp Course 1. Acute onset of bilateral lower extremity paresthesias and inability to urinate. Unclear etiology. The patient's spine MRI showing signal abnormality at the conus medullaris with probable minimal expansion, most likely representing infectious/inflammatory etiologies. Status post evaluation by neurosurgery. No indication for surgical intervention. Status post evaluation by neurology. Further workup ordered including 2D echocardiogram, carotid Doppler study, cultures, and lumbar puncture. Continue the patient on Decadron. 2. Urinary retention. Etiology unclear, most probably secondary to #1. High postvoid residual. Called and talked to the urology panel Dr. Bentley on [address] Bentley agreed to see the patient on 09/03/2016. 3. Acute lacunar infarcts within bilateral parieto-occipital lobes and splenium of the right corpus callosum. Will start the patient on aspirin after the patient has lumbar puncture. We will start the patient on statins. 4. Dyslipidemia. Will start the patient on statins. 5. Hemoglobin A1c of 15.5. Possibly a lab error. Called the laboratory and informed about the same. Will recheck the hemoglobin A1c. 6. Fluids, electrolytes, and nutrition. Low-cholesterol diet. 7. DVT prophylaxis. Bilateral lower extremity sequential compression devices. 8. Gastrointestinal prophylaxis. Histamine 2 receptor blockers. 9. Plan. Obtain 2D echocardiogram. Obtain a lumbar puncture. Obtain blood cultures. Urology consult was obtained. Case discussed with Dr. Green. The plan of the patient was extensively discussed with the neurologist. Problems: Subjective 24 Hr Interval Summary Free Text/Dictation The patient verbalized improvement in bilateral lower extremity pain. Denies any headache. Exam/Review of Systems Vital Signs Vitals Vital Signs Date Time Temp Pulse Resp B/P Pulse Ox O2 Delivery O2 Flow Rate FiO2 09/02/16 08:00 98.5 86 18 118/77 96 09/01/16 15:14 Room Air Intake and Output 09/01/16 09/01/16 09/02/16 15:00 23:00 07:00 Intake Total 0 ml 0 ml 1040 ml Output Total 2500 ml 0 ml 1550 ml Balance -2500 ml 0 ml -510 ml Exam GENERAL: This is a well-built, well-nourished male lying in bed in no apparent distress. HEENT: Head normocephalic and atraumatic. Eyes: Anicteric sclerae. Conjunctivae clear. ENT: Nasal septum is midline. Oral mucosa is dry. NECK: Supple. No JVD noticed. RESPIRATORY: Bilaterally clear to auscultation. No adventitious breath sounds heard. No use of accessory muscles of respiration. CARDIAC: Regular rate and rhythm. No murmurs heard. GASTROINTESTINAL: Abdomen soft, nontender and nondistended. Bowel sounds positive in all 4 quadrants. GENITOURINARY: Deferred. EXTREMITIES: No cyanosis, no clubbing, no edema. Peripheral pulses palpable. NEUROLOGIC: The patient is awake, alert and oriented. Equal strength in bilateral upper and lower extremities. No sensory loss in bilateral lower extremities. Results Result Diagram: 09/02/16 0510 09/02/16 0510 Results 24 hrs Laboratory Tests Test 09/01/16 18:15 09/02/16 05:01 09/02/16 05:10 Urine Amphetamines Screen Negative Urine Barbiturates Negative Urine Benzodiazepines Screen Negative Urine Cannabinoids Negative Urine Cocaine Screen Negative Urine Opiates Screen Positive Free Thyroxine 0.90 Alanine Aminotransferase (ALT/SGPT) 36 Albumin 4.4 Albumin/Globulin Ratio 1.37 Alkaline Phosphatase 42 Anion Gap 20 H Aspartate Amino Transf (AST/SGOT) 27 Basophils # 0.0 Basophils % 0.0 Blood Urea Nitrogen 11 C-Reactive Protein < 0.5 Calcium Level 9.0 Carbon Dioxide Level 21 Chloride Level 104 Cholesterol Level 239 H Cholesterol/HDL Ratio 4.1 Creatinine 0.64 Direct Bilirubin 0.00 Eosinophils # 0.0 Eosinophils % 0.0 Erythrocyte Sedimentation Rate 45 H Globulin 3.20 Glucose Level 142 # HDL Cholesterol 57 HIV (1&2) Antibody NEGATIVE Hematocrit 46.3 Hemoglobin 16.4 Hemoglobin A1c 15.5 H Indirect Bilirubin 0.7 LDL Cholesterol, Calculated 170 Lymphocytes # 1.6 Lymphocytes % 22.6 Magnesium Level 2.1 Mean Corpuscular Hemoglobin 32.5 Mean Corpuscular Hemoglobin Concent 35.4 Mean Corpuscular Volume 91.9 Mean Platelet Volume 10.8 H Monocytes # 0.1 L Monocytes % 1.8 Neutrophils # 5.4 Neutrophils % 75.2 Nucleated Red Blood Cells # 0.0 Nucleated Red Blood Cells % 0.0 Phosphorus Level 3.4 Platelet Count 346 Potassium Level 3.9 Red Blood Count 5.04 Red Cell Distribution Width 12.8 Sodium Level 141 Thyroid Stimulating Hormone (TSH) 0.374 L Total Bilirubin 0.7 Total Protein 7.6 Triglycerides Level 61 White Blood Count 7.2 Medications Medications Current Medications Ondansetron HCl (Zofran Inj) 4 mg Q6H PRN IV NAUSEA AND/OR VOMITING; Start 09/01 at 16:30 Acetaminophen (Tylenol Tab) 650 mg Q6H PRN PO PAIN LEVEL 1-3 OR FEVER; Start at 16:30 Acetaminophen/ Hydrocodone Bitart ([place] (5/325)) 1 tab Q6H PRN PO MODERATE PAIN LEVEL 4-6; Start 09/01/16 at 16:30 Morphine Sulfate (morphine) 2 mg Q4H PRN IV SEVERE PAIN LEVEL 7-10; Start at 16:30 Magnesium Hydroxide (Milk Of Mag) 30 ml DAILY PRN PO CONSTIPATION; Start at 16:30 Bisacodyl (Dulcolax) 5 mg DAILY PRN PO CONSTIPATION; Start 09/01/16 at 16:30 Famotidine (Pepcid) 20 mg Q12 PO Last administered on 09/02/16 08:14; Admin Dose 20 MG; Start 09/01/16 at 21:00 Hydralazine HCl (Apresoline) 10 mg Q6H PRN IV SBP>160; Start 09/01/16 at 17:00 Dexamethasone (Decadron) 4 mg Q6 IV Last administered on 09/02/16 12:07; Admin Dose 4 MG; Start 09/01/16 at 18:00 Influenza Virus Vaccine (Fluzone) 0.5 ml ONCE ONCE IM* ; Start 09/02/16 at 20:00 ; Stop 09/02/16 at 20:01 Docusate Sodium (Colace) 100 mg TID PO ; Start 09/02/16 at 21:00; Status UNV JUICE SESAY NP Sep 02, 2016 14:28
--- NOTE | 2016-09-02 15:37 | RADRPT ---
PROCEDURE: Carotid ultrasound CLINICAL INDICATION: Stroke, carotid bruits TECHNIQUE: Fields scale, color doppler, spectral doppler ultrasound of the bilateral carotid and mauro tebral arteries. This study indirectly references the measurement of the distal ICA diameter as the denominator for s tenosis measurement. Validated velocity measurements with angiographic measurements, velocity criter ia are extrapolated from diameter data as defined by: *Cartoid artery stenosis: fields-scale and Doppl er US diagnosis. Society of Radiologists in Ultrasound Consensus Conference. Radiology 2003; 229: 34 0-346. SRU Consensus Conference Criteria for the Diagnosis of Carotid Artery Stenosis* Degree of Stenosis, % ICA PSV, cm/sec Plaque Estimate, % ICA/CCA PSV Ratio Normal <125 None <2.0 <50 <125 <50 <2.0 50 69 125-230 >50 2.0-4.0 >70 but less than near occlusion >230 >50 <4.0 Near occlusion High, low, or undetectable Visible Variable Total occlusion Undetectable Visible, no detectable lumen Not applicable COMPARISON: No prior studies are available for comparison. FINDINGS: Location Right [id number] cm/sec Prox ICA 83 cm/sec Mid ICA50 cm/sec Dist ICA70 cm/sec ECA74 cm/sec ICA/CCA0.8 Left [id number] cm/sec Prox ICA 73 cm/sec Mid ICA64 cm/sec Dist ICA54 cm/sec ECA81 cm/sec ICA/CCA0.6 Plaque burden: No significant plaque is seen. Antegrade flow is seen within the vertebral arteries bilaterally. IMPRESSION: No evidence of a hemodynamically significant carotid stenosis. RPTAT: AADD .Abelino Walters MD, Date Time Electronically viewed and signed by .Abelino Walters MD, MD on 09/02/2016 15:37 .B/
[2016-09-02 16:41] VITALS: BP 125/81; RESP 18
[2016-09-02] MEDS: DOCUSATE SODIUM 100 MG CAP PO SCH ×2 (17:08→21:39)
--- NOTE | 2016-09-02 17:48 | RADRPT ---
PROCEDURE: Fluoroscopic guided lumbar puncture. CLINICAL INDICATION: Headache. Fever. TECHNIQUE: Prior to the procedure, informed consent was obtained. Risks including bleeding and in fection were explained to the patient. The patient understood and was willing to proceed. A proced ural pause was performed. The patient's name, date of , and procedure to be performed were mauro ified. Using local anesthetic, sterile technique, and fluoroscopic guidance, a 22-gauge spinal needle was a dvanced into the thecal sac at the L4-5 level. Opening pressure was 10 cm of water. 7 mL of clear cerebrospinal fluid was aspirated and sent for laboratory analysis. The needle was removed. A dres sing was applied. The patient tolerated the procedure well. A total of 0.1 minutes of fluoroscopy time was used. COMPARISON: None. FINDINGS: Images demonstrate the needle at the L4-5 level in the thecal sac. IMPRESSION: Satisfactory fluoroscopic guided lumbar puncture. The opening pressure was 10 cm of water. RPTAT: QQ .Sebas Glez MD, MD Date Time Electronically viewed and signed by .Sebas Glez MD, on 09/02/2016 17:47 .R/
--- NOTE | 2016-09-02 19:01 | RADRPT ---
Echocardiogram Report Patient Name: MARIO JUAN Gender: Male Date: 1965 Study Date: 02-Sep-2016 [employer] Intern: Gomez Bennett [facility] Location: [facility] Ref. Physician: JUICE SESAY Quality: Good Procedures: Transthoracic echocardiogram with complete 2D, M-Mode, and doppler examination. Indications: Evaluate Left Ventricular function. 2D/M Mode Doppler Measurement Value Normal Ranges Measurement Value Normal Ranges LVIDd 2D 5.5 3.5 - 5.6 cm AV Peak Yuval 1.4 m/sec LVIDs 2D 2.8 2.1 - 4.1 cm AV Peak PG 8.0 mmHg FS 2D 49.3 % LVOT Peak Yuval 1.4 m/sec LVPWd 2D 0.8 0.6 - 1.1 cm LVOT Peak PG 8.0 mmHg IVSd 2D 1.0 0.6 - 1.1 cm MV E Peak Yuval 0.9 m/sec IVS/LVPW 2D 1.2 MV A Peak Yuval 0.8 m/sec AoR Diam 2D 2.5 2.0 - 3.7 cm MV E/A 1.2 LA/Ao 2D 1 0 - 1 MV Decel Time 102 msec EDV 2D 165.0 cm3 MV E/A 1.2 ESV 2D 21.5 cm3 TR Peak Yuval 2.0 m/sec LA Dimen 2D 3.6 2.3 - 4.0 cm TR Peak PG 17.0 mmHg RVSP 20.0 mmHg Findings Left Ventricle: Normal left ventricular systolic function. Normal left ventricular cavity size. Normal left ventricular wall thickness. Ejection fraction is visually estimated at 65 %. Tissue Doppler/Mitral Doppler indices are within normal limits. Right Ventricle: Normal right ventricular size. Normal right ventricular systolic function. Left Atrium: The left atrium is normal in size. Right Atrium: The right atrium is normal in size. Atrial Septum: Normal atrial septum. Bubble study was performed with and with out valsalva indicating no evidence of intra atrial shunt. Mitral Valve: Normal appearance and function of the mitral valve with trace physiologic regurgitation. Aortic Valve: Normal appearance of the aortic valve. No significant aortic stenosis or insufficiency. Tricuspid Valve: Normal appearance of the tricuspid valve. Estimated peak PA systolic pressure 20 mmHg. There is trace tricuspid regurgitation. Pulmonic Valve: Normal pulmonic valve appearance. Pericardium: Normal pericardium with no significant pericardial effusion. Aorta: Normal aortic root. IVC: Normal size and normal respiratory collapse consistent with normal right atrial pressure. Conclusions 1.Normal left ventricular systolic function. Normal left ventricular cavity size. Normal left ventricular wall thickness. Ejection fraction is visually estimated at 65 %. Tissue Doppler/Mitral Doppler indices are within normal limits. 2.Normal atrial septum. Bubble study was performed with and with out valsalva indicating no evidence of intra atrial shunt. 3.No significant valvular stenosis or regurgitation seen. 4.Estimated peak PA systolic pressure 20 mmHg based on RA pressure of 3 mmHg. Electronically Signed By: Jignesh Monge 02-Sep-2016 19:00:30 -0800 Patient Name: MARIO JUAN Study Date: 02-Sep-[id number]
[2016-09-02 19:32] LABS: GLUCOSE,CSF 78 mg/dl (50-80)
[2016-09-02 19:47] LABS: %CREANATED RBC CSF 0 %; CSF COLOR COLORLESS; CSF VOLUME 4.5 ml; CSF#TUBE COUNT TUBE#4; CSF#TUBES REC'D 4
[2016-09-02] MEDS ORDERED: INFLUENZA VIRUS VACCINE 0.5 ML SYG IM* ONE (20:00)
[2016-09-02 20:56] VITALS: BP 125/72; RESP 16
[2016-09-02] MEDS: ATORVASTATIN 40 MG TAB PO SCH (21:39)
[2016-09-02] MEDS: POLYETHYLENE GLYCOL 17 GM PACKET PO SCH (21:39)
[2016-09-03] MEDS: DEXAMETHASONE 4 MG/ML 1 ML INJ IV SCH ×4 (01:23→17:20)
[2016-09-03 06:17] LABS: ADD SCAN DIFF NO
[2016-09-03 06:25] LABS: BASOPHILS % 0.1 % (0.0-2.0); HEMATOCRIT 46.8 % (42.0-52.0); HEMOGLOBIN 16.2 g/dl (14.0-18.0); LYMPHOCYTES # 1.8 10^3/ul (0.8-2.9); LYMPHOCYTES % 9.9 % (15.0-51.0); MEAN CORPUSCULAR HEMOGLOBIN 32.4 pg (29.0-33.0); MEAN CORPUSCULAR HGB CONC 34.6 g/dl (32.0-37.0); MEAN CORPUSCULAR VOLUME 93.6 fl (82.0-101.0); MONOCYTE # 0.6 10^3/ul (0.3-0.9); MONOCYTES % 2.9 % (0.0-11.0); NEUTROPHIL # 16.2 10^3/ul (1.6-7.5); NEUTROPHILS % 86.6 % (39.0-77.0); PLATELET COUNT 341 10^3/UL (140-415); RED CELL DISTRIBUTION WIDTH 13.1 % (11.5-14.5); WHITE BLOOD COUNT 18.7 10^3/ul (4.8-10.8)
[2016-09-03 06:36] LABS: POTASSIUM 3.9 mmol/L (3.5-5.1)
[2016-09-03 06:38] LABS: CREATININE 0.7 mg/dl (0.61-1.24)
[2016-09-03 06:39] LABS: CALCIUM 9.1 mg/dl (8.4-10.2)
[2016-09-03 06:44] LABS: MAGNESIUM 2.2 mg/dl (1.7-2.5); PHOSPHORUS 4.4 mg/dl (2.5-4.9)
[2016-09-03 07:46] VITALS: BP 111/75; RESP 18
[2016-09-03] MEDS: FAMOTIDINE 20 MG TAB PO SCH ×2 (08:20→21:30)
[2016-09-03] MEDS: POLYETHYLENE GLYCOL 17 GM PACKET PO SCH ×2 (08:21→21:00)
[2016-09-03] MEDS: DOCUSATE SODIUM 100 MG CAP PO SCH ×3 (08:21→21:30)
[2016-09-03] MEDS ORDERED: CHOLECALCIFEROL 400 UNITS TAB PO SCH (09:00)
--- NOTE | 2016-09-03 10:42 | PN ---
Date/Time of Note Date/Time of Note DATE: 09/03/16 TIME: 10:37 Assessment/Plan VTE Prophylaxis VTE Prophylaxis Intervention: SCD's Lines/Catheters IV C[facility] Type (from [facility] Saline Lock Urinary Cath still in place: Yes Reason Cath still needed: urinary retention Assessment/Plan Chief Complaint/Hosp Course 1. Acute onset of bilateral lower extremity paresthesias and inability to urinate. Unclear etiology. The patient's spine MRI showing signal abnormality at the conus medullaris with probable minimal expansion, most likely representing infectious/inflammatory etiologies. Status post evaluation by neurosurgery. No indication for surgical intervention. Status post evaluation by neurology. Continue the patient on Decadron. 2. Urinary retention. Etiology unclear, most probably secondary to #1. High postvoid residual. Called and talked to the urology panel Dr. Bentley on [address] Bentley agreed to see the patient on 09/03/2016. 3. Acute lacunar infarcts within bilateral parieto-occipital lobes and splenium of the right corpus callosum. Will start the patient on aspirin. The patient on statins. 4. Dyslipidemia. Continue statins. 5. Hemoglobin A1c of 15.5. Lab error. Repeat A1C is 5.2. 6. Fluids, electrolytes, and nutrition. Low-cholesterol diet. 7. DVT prophylaxis. Bilateral lower extremity sequential compression devices. 8. Gastrointestinal prophylaxis for histamine 2 receptor blockers. 9. Plan. Await further input from neurology. Await urology evaluation. Case discussed with Dr. Green. The plan of care was explained to the patient's family who was at the bedside. Problems: Subjective 24 Hr Interval Summary Free Text/Dictation Patient complaining lack of urge/feeling to defecate. Exam/Review of Systems Vital Signs Vitals Vital Signs Date Time Temp Pulse Resp B/P Pulse Ox O2 Delivery O2 Flow Rate FiO2 09/03/16 07:46 98.0 67 18 111/75 97 09/01/16 15:14 Room Air Intake and Output 09/02/16 09/02/16 09/03/16 15:00 23:00 07:00 Intake Total 400 ml 1590 ml 200 ml Output Total 1850 ml 800 ml Balance 400 ml -260 ml -600 ml Exam GENERAL: This is a well-built, well-nourished male lying in bed in no apparent distress. HEENT: Head normocephalic and atraumatic. Eyes: Anicteric sclerae. Conjunctivae clear. ENT: Nasal septum is midline. Oral mucosa is dry. NECK: Supple. No JVD noticed. RESPIRATORY: Bilaterally clear to auscultation. No adventitious breath sounds heard. No use of accessory muscles of respiration. CARDIAC: Regular rate and rhythm. No murmurs heard. GASTROINTESTINAL: Abdomen soft, nontender and nondistended. Bowel sounds positive in all 4 quadrants. GENITOURINARY: Deferred. EXTREMITIES: No cyanosis, no clubbing, no edema. Peripheral pulses palpable. NEUROLOGIC: The patient is awake, alert and oriented. Equal strength in bilateral upper and lower extremities. No sensory loss in bilateral lower extremities. Results Result Diagram: 09/03/16 0549 09/03/16 0549 Results 24 hrs Laboratory Tests Test 09/02/16 17:49 09/03/16 05:49 CSF Appearance CLEAR CSF Cell Count Tube # TUBE#4 CSF Color COLORLESS CSF Crenated Cells 0 CSF Glucose 78 CSF Lactate Dehydrogenase 274 CSF Lymphocytes % CSF Monocytes % CSF Neutrophils % CSF RBC 0 CSF Total Cells Counted CSF Total Protein 56 CSF Tubes Submitted 4 CSF Volume 4.5 CSF WBC 6 Anion Gap 18 H Basophils # 0.0 Basophils % 0.1 Blood Urea Nitrogen 20 Calcium Level 9.1 Carbon Dioxide Level 24 Chloride Level 106 Creatinine 0.70 Eosinophils # 0.0 Eosinophils % 0.0 Glucose Level 135 Hematocrit 46.8 Hemoglobin 16.2 Lymphocytes # 1.8 Lymphocytes % 9.9 L Magnesium Level 2.2 Mean Corpuscular Hemoglobin 32.4 Mean Corpuscular Hemoglobin Concent 34.6 Mean Corpuscular Volume 93.6 Mean Platelet Volume 11.0 H Monocytes # 0.6 Monocytes % 2.9 Neutrophils # 16.2 H Neutrophils % 86.6 H Nucleated Red Blood Cells # 0.0 Nucleated Red Blood Cells % 0.0 Phosphorus Level 4.4 Platelet Count 341 Potassium Level 3.9 Red Blood Count 5.00 Red Cell Distribution Width 13.1 Sodium Level 144 White Blood Count 18.7 #H Medications Medications Current Medications Ondansetron HCl (Zofran Inj) 4 mg Q6H PRN IV NAUSEA AND/OR VOMITING; Start 09/01 at 16:30 Acetaminophen (Tylenol Tab) 650 mg Q6H PRN PO PAIN LEVEL 1-3 OR FEVER; Start at 16:30 Acetaminophen/ Hydrocodone Bitart ([place] (5/325)) 1 tab Q6H PRN PO MODERATE PAIN LEVEL 4-6; Start 09/01/16 at 16:30 Morphine Sulfate (morphine) 2 mg Q4H PRN IV SEVERE PAIN LEVEL 7-10; Start at 16:30 Magnesium Hydroxide (Milk Of Mag) 30 ml DAILY PRN PO CONSTIPATION; Start at 16:30 Bisacodyl (Dulcolax) 5 mg DAILY PRN PO CONSTIPATION; Start 09/01/16 at 16:30 Famotidine (Pepcid) 20 mg Q12 PO Last administered on 09/03/16 08:20; Admin Dose 20 MG; Start 09/01/16 at 21:00 Hydralazine HCl (Apresoline) 10 mg Q6H PRN IV SBP>160; Start 09/01/16 at 17:00 Dexamethasone (Decadron) 4 mg Q6 IV Last administered on 09/03/16 05:41; Admin Dose 4 MG; Start 09/01/16 at 18:00 Docusate Sodium (Colace) 100 mg TID PO Last administered on 09/03/16 08:21; Admin Dose 100 MG; Start 09/02/16 at 14:00 Polyethylene Glycol (Miralax) 17 gm BID PO Last administered on 09/03/16 08:21 ; Admin Dose 17 GM; Start 09/02/16 at 21:00 Atorvastatin Calcium (Lipitor) 40 mg HS PO Last administered on 09/02/16 21:39 ; Admin Dose 40 MG; Start 09/02/16 at 21:00 Cholecalciferol (Vitamin D) 800 units DAILY PO Last administered on 09/03/16 08:20; Admin Dose 800 UNITS; Start 09/03/16 at 09:00 JUICE SESAY NP Sep 03, 2016 10:42
--- NOTE | 2016-09-03 15:54 | RADRPT ---
PROCEDURE: MRA Brain. CLINICAL INDICATION: History of parietal occipital. Lacunar infarcts. Evaluate for vasculitis. TECHNIQUE: An MRA of the brain was performed on a 1.5 hi scanner utilizing 3-D [id number] MR angiography technique. Source and MIP images were reviewed. COMPARISON: None FINDINGS: Source imaging demonstrates marked degradation secondary to patient motion. No gross evidence of lum inal irregularity, beading, focal stenosis, or occlusion to suggest vasculopathy. The internal carotid arteries are patent and normal in caliber. The middle cerebral and the anterio r cerebral arteries are also patent and normal in caliber. Intact anterior and posterior communicat ing arteries. The posterior cerebral arteries are patent and normal in caliber. The basilar artery is patent and n ormal in caliber. The vertebral arteries patent and normal in caliber. Dominant left vertebral tobi ry. No evidence of intracranial aneurysm, vascular malformation, or arterial dissection. IMPRESSION: 1. No luminal irregularity, beading, focal stenosis or occlusion to suggest vasculopathy. Otherwise , unremarkable MRA of the brain. RPTAT:AAJJ Physician Nolan Date Time Electronically viewed and signed by Physician Nolan on 09/03/2016 15:54 TIFFANI/
[2016-09-03] MEDS ORDERED: LORAZEPAM 0.5 MG TAB PO PRN (16:00)
--- NOTE | 2016-09-03 16:00 | RADRPT ---
PROCEDURE: MRA Neck without contrast. CLINICAL INDICATION: Stroke. Evaluate for stenosis. TECHNIQUE: An MRA of the major cervical arteries was performed on the 1.5 hi scanner utilizing axial 2D time of flight. No IV contrast was given as ordered. Source and MIPPED images were reviewe d. COMPARISON: Carotid ultrasound 09/02/2016 FINDINGS: Image degradation secondary to patient motion with a misregistration artifact The visualized aortic arch and i margin of the arch vessels are unremarkable . The common carotid arteries are patent and normal in caliber. The carotid bulbs appear grossly normal, and no hemodynamically significant stenosis is evident with in either internal carotid artery. The vertebral arteries are grossly patent and normal in caliber bilaterally. There is no evidence o f vascular stenosis or occlusion. IMPRESSION: Grossly normal MR angiogram of the neck vessels within the limits of this study secondary to image d egradation and artifact as described above. RPTAT:AAJJ Opal Rizzo Physician Date Time Electronically viewed and signed by Physician Nolan on 09/03/2016 15:59 TIFFANI/
--- NOTE | 2016-09-03 17:52 | CONS ---
Date/Time of Note Date/Time of Note DATE: 09/03/16 TIME: 17:47 Consult Date/Type/Reason Admit Date/Time Sep 01, 2016 at 12:45 Initial Consult Date 09/02/16 Type of Consultation: Neurology Reason for Consultation LE numbness, saddle anesthesia, urinary incontinence Ordering Provider: JUICE SESAY NP Subjective reports some mild improvement in numbness decreased sensation to genital region, buttox and posterio/lateral thighs bilaterally was able to ambulate to the bathroom Objective Vital Signs Date Time Temp Pulse Resp B/P Pulse Ox O2 Delivery O2 Flow Rate FiO2 09/03/16 07:46 98.0 67 18 111/75 97 09/01/16 15:14 Room Air Intake and Output 09/02/16 09/02/16 09/03/16 15:00 23:00 07:00 Intake Total 400 ml 1590 ml 200 ml Output Total 1850 ml 800 ml Balance 400 ml -260 ml -600 ml awake and alert oriented to self, hospital, and date malian speaking primarily, absent aphasia follows commands well no neglect no rashes on skin CN: HARDY, VFF, EOMI no nystagmus no facial asymmetry palate upgoing uvula midline scm/trap intact tongue midline Motor: strength is full and equal in all extremities 5/5 throughout in LE as well no atrophy normal muscle bulk and tone, decreased rectal tone Sensory: no sensory level appreciated throughout abdomen or back decreased pin prick sensation below waist on bilateral buttox region as well as posterior/lateral thighs up to the knees inner thigh sensation is intact to PP , decreased sensation in L1 and S1,S2 dermatomal region Reflexes 1+ UE, 1+ KJ, trace AJ toes are downgoing Coordination no ataxia Results/Medications Result Diagram: 09/03/16 0549 09/03/16 0549 Results 24 hrs Laboratory Tests Test 09/02/16 17:49 09/03/16 05:49 CSF Appearance CLEAR CSF Cell Count Tube # TUBE#4 CSF Color COLORLESS CSF Crenated Cells 0 CSF Glucose 78 CSF Lactate Dehydrogenase 274 CSF Lymphocytes % CSF Monocytes % CSF Neutrophils % CSF RBC 0 CSF Total Cells Counted CSF Total Protein 56 CSF Tubes Submitted 4 CSF Volume 4.5 CSF WBC 6 Anion Gap 18 H Basophils # 0.0 Basophils % 0.1 Blood Urea Nitrogen 20 Calcium Level 9.1 Carbon Dioxide Level 24 Chloride Level 106 Creatinine 0.70 Eosinophils # 0.0 Eosinophils % 0.0 Glucose Level 135 Hematocrit 46.8 Hemoglobin 16.2 Lymphocytes # 1.8 Lymphocytes % 9.9 L Magnesium Level 2.2 Mean Corpuscular Hemoglobin 32.4 Mean Corpuscular Hemoglobin Concent 34.6 Mean Corpuscular Volume 93.6 Mean Platelet Volume 11.0 H Monocytes # 0.6 Monocytes % 2.9 Neutrophils # 16.2 H Neutrophils % 86.6 H Nucleated Red Blood Cells # 0.0 Nucleated Red Blood Cells % 0.0 Phosphorus Level 4.4 Platelet Count 341 Potassium Level 3.9 Red Blood Count 5.00 Red Cell Distribution Width 13.1 Sodium Level 144 White Blood Count 18.7 #H Medications Current Medications Ondansetron HCl (Zofran Inj) 4 mg Q6H PRN IV NAUSEA AND/OR VOMITING; Start 09/01 at 16:30 Acetaminophen (Tylenol Tab) 650 mg Q6H PRN PO PAIN LEVEL 1-3 OR FEVER; Start at 16:30 Acetaminophen/ Hydrocodone Bitart ([place] (5/325)) 1 tab Q6H PRN PO MODERATE PAIN LEVEL 4-6; Start 09/01/16 at 16:30 Morphine Sulfate (morphine) 2 mg Q4H PRN IV SEVERE PAIN LEVEL 7-10; Start at 16:30 Magnesium Hydroxide (Milk Of Mag) 30 ml DAILY PRN PO CONSTIPATION; Start at 16:30 Bisacodyl (Dulcolax) 5 mg DAILY PRN PO CONSTIPATION; Start 09/01/16 at 16:30 Famotidine (Pepcid) 20 mg Q12 PO Last administered on 09/03/16 08:20; Admin Dose 20 MG; Start 09/01/16 at 21:00 Hydralazine HCl (Apresoline) 10 mg Q6H PRN IV SBP>160; Start 09/01/16 at 17:00 Dexamethasone (Decadron) 4 mg Q6 IV Last administered on 09/03/16 17:20; Admin Dose 4 MG; Start 09/01/16 at 18:00 Docusate Sodium (Colace) 100 mg TID PO Last administered on 09/03/16 12:29; Admin Dose 100 MG; Start 09/02/16 at 14:00 Polyethylene Glycol (Miralax) 17 gm BID PO Last administered on 09/03/16 08:21 ; Admin Dose 17 GM; Start 09/02/16 at 21:00 Atorvastatin Calcium (Lipitor) 40 mg HS PO Last administered on 09/02/16 21:39 ; Admin Dose 40 MG; Start 09/02/16 at 21:00 Cholecalciferol (Vitamin D) 800 units DAILY PO Last administered on 09/03/16 08:20; Admin Dose 800 UNITS; Start 09/03/16 at 09:00 Aspirin (Halfprin) 81 mg DAILY PO ; Start 09/04/16 at 09:00 Lorazepam (Ativan) 0.5 mg Q8H PRN PO ANXIETY Last administered on 09/03/16 16: 04; Admin Dose 0.5 MG; Start 09/03/16 at 16:00 Zolpidem Tartrate (Ambien) 5 mg HS PRN PO INSOMNIA; Start 09/03/16 at 16:00 Assessment/Plan Chief Complaint/Hosp Course 50 year old male with hyperlipidemia presenting with sudden onset of LE numbness below the waist with urinary incontinence, initiated on steroids. Spine imaging suggestive of edema at T12/L1 possible inflammatory/demyelinating etiology pending further workup. MRI Brain also shows punctate bilateral infarcts unclear etiology. MRA Head and Neck wnl. ECHO with bubble normal EF, no PFO RPR : negative HIV negative CSF studies: WBC: 6, Protein: 56 mild protein elevation, Glucose: 78, RBC: 0 Recommendations: 1. T12/L1 edema -several studies pending from CSF, cultures are pending, cytology, IgG index, oligoclonal bands VZV, HSV, LEROY, VDRL -may repeat MRI Lumbar spine post contrast imaging only to evaluate for enhancement of the conus and rule out underlying lesion -may continue on steroid regimen for now if symptoms are improving with appropriate sliding scale and PPI 2. bilateral parietal occipital strokes, right splenium stroke -suspect an underlying infectious/inflammatory etiology -2 sets of blood cultures -repeat HBA1C wnl PT/OT eval DVT ppx awaiting further results of LP studies and repeat MRI for recommendations may benefit from acute rehab Problems: CARMEN ALLISON MD Sep 03, 2016 17:52
[2016-09-03] MEDS: ATORVASTATIN 40 MG TAB PO SCH (21:29)
[2016-09-03] MEDS: ZOLPIDEM 5 MG TAB PO PRN (21:32)
[2016-09-04] MEDS: DEXAMETHASONE 4 MG/ML 1 ML INJ IV SCH ×4 (00:07→17:21)
[2016-09-04 05:07] LABS: ADD SCAN DIFF NO
[2016-09-04 05:18] LABS: BASOPHILS % 0.1 % (0.0-2.0); HEMATOCRIT 45.9 % (42.0-52.0); HEMOGLOBIN 16.2 g/dl (14.0-18.0); LYMPHOCYTES # 1.8 10^3/ul (0.8-2.9); LYMPHOCYTES % 13.7 % (15.0-51.0); MEAN CORPUSCULAR HEMOGLOBIN 32.9 pg (29.0-33.0); MEAN CORPUSCULAR HGB CONC 35.3 g/dl (32.0-37.0); MEAN CORPUSCULAR VOLUME 93.1 fl (82.0-101.0); MEAN PLATELET VOLUME 10.6 fl (7.4-10.4); MONOCYTE # 0.4 10^3/ul (0.3-0.9); MONOCYTES % 3.2 % (0.0-11.0); NEUTROPHIL # 10.7 10^3/ul (1.6-7.5); NEUTROPHILS % 82.3 % (39.0-77.0); PLATELET COUNT 325 10^3/UL (140-415); RED BLOOD COUNT 4.93 10^6/ul (4.70-6.10)
[2016-09-04 05:25] LABS: POTASSIUM 3.9 mmol/L (3.5-5.1)
[2016-09-04 05:28] LABS: CREATININE 0.64 mg/dl (0.61-1.24)
[2016-09-04 05:29] LABS: CALCIUM 8.7 mg/dl (8.4-10.2)
[2016-09-04 05:54] LABS: MAGNESIUM 2.2 mg/dl (1.7-2.5); PHOSPHORUS 3.8 mg/dl (2.5-4.9)
[2016-09-04 07:15] VITALS: BP 131/85; RESP 18
[2016-09-04] MEDS: CHOLECALCIFEROL 2,000 UNIT CAP PO SCH (08:13)
[2016-09-04] MEDS: DOCUSATE SODIUM 100 MG CAP PO SCH ×3 (08:13→21:55)
[2016-09-04] MEDS: POLYETHYLENE GLYCOL 17 GM PACKET PO SCH ×3 (08:13→21:55)
[2016-09-04] MEDS: ASPIRIN (EC) 81 MG TAB PO SCH (08:13)
[2016-09-04] MEDS: FAMOTIDINE 20 MG TAB PO SCH ×2 (08:13→21:55)
[2016-09-04] MEDS ORDERED: CHOLECALCIFEROL 400 UNITS TAB PO SCH (09:00)
--- NOTE | 2016-09-04 11:13 | PN ---
Date/Time of Note Date/Time of Note DATE: 09/04/16 TIME: 11:11 Assessment/Plan VTE Prophylaxis VTE Prophylaxis Intervention: SCD's Lines/Catheters IV C[facility]ter Type [facility] Saline Lock Urinary Cath still in place: Yes Reason Cath still needed: urinary retention Assessment/Plan Chief Complaint/Hosp Course 1. Acute onset of bilateral lower extremity paresthesias and inability to urinate. Unclear etiology. The patient's spine MRI showing signal abnormality at the conus medullaris with probable minimal expansion, most likely representing infectious/inflammatory etiologies. Status post evaluation by neurosurgery. No indication for surgical intervention. Status post evaluation by neurology. Continue the patient on Decadron. 2. Urinary retention with overflow incontinence. Etiology unclear, most probably secondary to #1. High postvoid residual. Called and talked to the urology panel Dr. Bentley on 09/02/[address] Bentley agreed to see the patient on 09/03/2016. The patient has not seen by Urology yet. Paged the urologist [facility] operations on 09/04/2016 at 11:20 AM. Received a call back from of the on- call urologist Dr. Sheldon at 11:30 AM on 09/04/2016. As per Dr. Sheldon, the plan is to keep the Gates catheter in place until the patient's neurologic workup is finished. Once the neurologic workup is finished and the patient is stable to be discharged, Dr. Sheldon needs to be notified. 3. Acute lacunar infarcts within bilateral parieto-occipital lobes and splenium of the right corpus callosum. Will start the patient on aspirin. The patient on statins. 4. Dyslipidemia. Continue statins. 5. Hemoglobin A1c of 15.5. Lab error. Repeat A1C is 5.2. 6. Fluids, electrolytes, and nutrition. Low-cholesterol diet. 7. DVT prophylaxis. Bilateral lower extremity sequential compression devices. 8. Gastrointestinal prophylaxis for histamine 2 receptor blockers. 9. Plan. Await further input from neurology. Await urology evaluation. Case discussed with Dr. Green. Problems: Subjective 24 Hr Interval Summary Free Text/Dictation Feeling more strength in B/L lower extremities. The patient had a bowel movement. Exam/Review of Systems Vital Signs Vitals Vital Signs Date Time Temp Pulse Resp B/P Pulse Ox O2 Delivery O2 Flow Rate FiO2 3/12/17 07:15 98.3 71 18 131/85 97 09/01/16 15:14 Room Air Intake and Output 09/03/16 09/03/16 09/04/16 15:00 23:00 07:00 Intake Total 1820 ml 240 ml Output Total 1300 ml 500 ml Balance 520 ml -260 ml Exam GENERAL: This is a well-built, well-nourished male lying in bed in no apparent distress. HEENT: Head normocephalic and atraumatic. Eyes: Anicteric sclerae. Conjunctivae clear. ENT: Nasal septum is midline. Oral mucosa is dry. NECK: Supple. No JVD noticed. RESPIRATORY: Bilaterally clear to auscultation. No adventitious breath sounds heard. No use of accessory muscles of respiration. CARDIAC: Regular rate and rhythm. No murmurs heard. GASTROINTESTINAL: Abdomen soft, nontender and nondistended. Bowel sounds positive in all 4 quadrants. GENITOURINARY: Deferred. EXTREMITIES: No cyanosis, no clubbing, no edema. Peripheral pulses palpable. NEUROLOGIC: The patient is awake, alert and oriented. Equal strength in bilateral upper and lower extremities. No sensory loss in bilateral lower extremities. Results Result Diagram: 09/04/16 0436 09/04/16 0436 Results 24 hrs Laboratory Tests Test 09/04/16 04:36 Anion Gap 19 H Basophils # 0.0 Basophils % 0.1 Blood Urea Nitrogen 20 Calcium Level 8.7 Carbon Dioxide Level 23 Chloride Level 103 Creatinine 0.64 Eosinophils # 0.0 Eosinophils % 0.0 Glucose Level 131 Hematocrit 45.9 Hemoglobin 16.2 Lymphocytes # 1.8 Lymphocytes % 13.7 L Magnesium Level 2.2 Mean Corpuscular Hemoglobin 32.9 Mean Corpuscular Hemoglobin Concent 35.3 Mean Corpuscular Volume 93.1 Mean Platelet Volume 10.6 H Monocytes # 0.4 Monocytes % 3.2 Neutrophils # 10.7 H Neutrophils % 82.3 H Nucleated Red Blood Cells # 0.0 Nucleated Red Blood Cells % 0.0 Phosphorus Level 3.8 Platelet Count 325 Potassium Level 3.9 Red Blood Count 4.93 Red Cell Distribution Width 13.0 Sodium Level 141 White Blood Count 13.0 #H Medications Medications Current Medications Ondansetron HCl (Zofran Inj) 4 mg Q6H PRN IV NAUSEA AND/OR VOMITING; Start 09/01 at 16:30 Acetaminophen (Tylenol Tab) 650 mg Q6H PRN PO PAIN LEVEL 1-3 OR FEVER; Start at 16:30 Acetaminophen/ Hydrocodone Bitart ([place] (5/325)) 1 tab Q6H PRN PO MODERATE PAIN LEVEL 4-6; Start 09/01/16 at 16:30 Morphine Sulfate (morphine) 2 mg Q4H PRN IV SEVERE PAIN LEVEL 7-10; Start at 16:30 Magnesium Hydroxide (Milk Of Mag) 30 ml DAILY PRN PO CONSTIPATION; Start at 16:30 Bisacodyl (Dulcolax) 5 mg DAILY PRN PO CONSTIPATION; Start 09/01/16 at 16:30 Famotidine (Pepcid) 20 mg Q12 PO Last administered on 09/04/16 08:13; Admin Dose 20 MG; Start 09/01/16 at 21:00 Hydralazine HCl (Apresoline) 10 mg Q6H PRN IV SBP>160; Start 09/01/16 at 17:00 Dexamethasone (Decadron) 4 mg Q6 IV Last administered on 09/04/16 05:57; Admin Dose 4 MG; Start 09/01/16 at 18:00 Docusate Sodium (Colace) 100 mg TID PO Last administered on 09/04/16 08:13; Admin Dose 100 MG; Start 09/02/16 at 14:00 Polyethylene Glycol (Miralax) 17 gm BID PO Last administered on 09/03/16 08:21 ; Admin Dose 17 GM; Start 09/02/16 at 21:00 Atorvastatin Calcium (Lipitor) 40 mg HS PO Last administered on 09/03/16 21:29 ; Admin Dose 40 MG; Start 09/02/16 at 21:00 Aspirin (Halfprin) 81 mg DAILY PO Last administered on 09/04/16 08:13; Admin Dose 81 MG; Start 09/04/16 at 09:00 Lorazepam (Ativan) 0.5 mg Q8H PRN PO ANXIETY Last administered on 09/03/16 16: 04; Admin Dose 0.5 MG; Start 09/03/16 at 16:00 Zolpidem Tartrate (Ambien) 5 mg HS PRN PO INSOMNIA Last administered on 3/11/ 17at 21:32; Admin Dose 5 MG; Start 09/03/16 at 16:00 Cholecalciferol (Vitamin D) 2,000 unit DAILY PO Last administered on 09/04/16t 08:13; Admin Dose 2,000 UNIT; Start 09/04/16 at 09:00 JUICE ESSAY NP Sep 04, 2016 11:13
--- NOTE | 2016-09-04 16:48 | CONS ---
Date/Time of Note Date/Time of Note DATE: 09/04/16 TIME: 16:38 Consult Date/Type/Reason Admit Date/Time Sep 01, 2016 at 12:45 Initial Consult Date 09/02/16 Type of Consultation: Neurology Reason for Consultation LE numbness urinary incontinence T12-L1 edema Ordering Provider: JUICE SESAY NP Subjective reports improving numbness around thigh region was able to ambulate more today persistent urinary incontinence Objective Vital Signs Date Time Temp Pulse Resp B/P Pulse Ox O2 Delivery O2 Flow Rate FiO2 09/04/16 07:15 98.3 71 18 131/85 97 09/01/16 15:14 Room Air Intake and Output 09/03/16 09/03/16 09/04/16 15:00 23:00 07:00 Intake Total 1820 ml 240 ml Output Total 1300 ml 500 ml Balance 520 ml -260 ml awake and alert oriented to self, hospital, and date dive[place] speaking primarily, absent aphasia follows commands well no neglect no rashes on skin CN: HARDY, VFF, EOMI no nystagmus no facial asymmetry palate upgoing uvula midline scm/trap intact tongue midline Motor: strength is full and equal in all extremities 5/5 throughout in LE as well no atrophy normal muscle bulk and tone, decreased rectal tone Sensory: no sensory level appreciated throughout abdomen or back decreased pin prick sensation below waist on bilateral buttox region as well as posterior/lateral thighs up to the knees inner thigh sensation is intact to PP , decreased sensation in L1 and S1,S2 dermatomal region Reflexes 1+ UE, 1+ KJ, trace AJ toes are downgoing Results/Medications Result Diagram: 09/04/16 0436 09/04/16 0436 Results 24 hrs Laboratory Tests Test 09/04/16 04:36 Anion Gap 19 H Basophils # 0.0 Basophils % 0.1 Blood Urea Nitrogen 20 Calcium Level 8.7 Carbon Dioxide Level 23 Chloride Level 103 Creatinine 0.64 Eosinophils # 0.0 Eosinophils % 0.0 Glucose Level 131 Hematocrit 45.9 Hemoglobin 16.2 Lymphocytes # 1.8 Lymphocytes % 13.7 L Magnesium Level 2.2 Mean Corpuscular Hemoglobin 32.9 Mean Corpuscular Hemoglobin Concent 35.3 Mean Corpuscular Volume 93.1 Mean Platelet Volume 10.6 H Monocytes # 0.4 Monocytes % 3.2 Neutrophils # 10.7 H Neutrophils % 82.3 H Nucleated Red Blood Cells # 0.0 Nucleated Red Blood Cells % 0.0 Phosphorus Level 3.8 Platelet Count 325 Potassium Level 3.9 Red Blood Count 4.93 Red Cell Distribution Width 13.0 Sodium Level 141 White Blood Count 13.0 #H Medications Current Medications Ondansetron HCl (Zofran Inj) 4 mg Q6H PRN IV NAUSEA AND/OR VOMITING; Start 09/01 at 16:30 Acetaminophen (Tylenol Tab) 650 mg Q6H PRN PO PAIN LEVEL 1-3 OR FEVER; Start at 16:30 Acetaminophen/ Hydrocodone Bitart ([place] (5/325)) 1 tab Q6H PRN PO MODERATE PAIN LEVEL 4-6; Start 09/01/16 at 16:30 Morphine Sulfate (morphine) 2 mg Q4H PRN IV SEVERE PAIN LEVEL 7-10; Start at 16:30 Magnesium Hydroxide (Milk Of Mag) 30 ml DAILY PRN PO CONSTIPATION; Start at 16:30 Bisacodyl (Dulcolax) 5 mg DAILY PRN PO CONSTIPATION; Start 09/01/16 at 16:30 Famotidine (Pepcid) 20 mg Q12 PO Last administered on 09/04/16 08:13; Admin Dose 20 MG; Start 09/01/16 at 21:00 Hydralazine HCl (Apresoline) 10 mg Q6H PRN IV SBP>160; Start 09/01/16 at 17:00 Dexamethasone (Decadron) 4 mg Q6 IV Last administered on 09/04/16 12:09; Admin Dose 4 MG; Start 09/01/16 at 18:00 Docusate Sodium (Colace) 100 mg TID PO Last administered on 09/04/16 08:13; Admin Dose 100 MG; Start 09/02/16 at 14:00 Polyethylene Glycol (Miralax) 17 gm BID PO Last administered on 09/03/16 08:21 ; Admin Dose 17 GM; Start 09/02/16 at 21:00 Atorvastatin Calcium (Lipitor) 40 mg HS PO Last administered on 09/03/16 21:29 ; Admin Dose 40 MG; Start 09/02/16 at 21:00 Aspirin (Halfprin) 81 mg DAILY PO Last administered on 09/04/16 08:13; Admin Dose 81 MG; Start 09/04/16 at 09:00 Lorazepam (Ativan) 0.5 mg Q8H PRN PO ANXIETY Last administered on 09/03/16 16: 04; Admin Dose 0.5 MG; Start 09/03/16 at 16:00 Zolpidem Tartrate (Ambien) 5 mg HS PRN PO INSOMNIA Last administered on 21:32; Admin Dose 5 MG; Start 09/03/16 at 16:00 Cholecalciferol (Vitamin D) 2,000 unit DAILY PO Last administered on 09/04/16 08:13; Admin Dose 2,000 UNIT; Start 09/04/16 at 09:00 Assessment/Plan Chief Complaint/Hosp Course 50 year old male with hyperlipidemia presenting with sudden onset of LE numbness below the waist with urinary incontinence, initiated on steroids. Spine imaging suggestive of edema at T12/L1 possible inflammatory/demyelinating etiology pending further workup. MRI Brain also shows punctate bilateral infarcts unclear etiology. MRA Head and Neck wnl. ECHO with bubble normal EF, no PFO RPR : negative HIV negative CSF studies: WBC: 6, Protein: 56 mild protein elevation, Glucose: 78, RBC: 0 Recommendations: 1. T12/L1 edema -several studies pending from CSF, cultures are pending, cytology, IgG index, oligoclonal bands VZV, HSV, LEROY, VDRL - repeat MRI Lumbar spine post contrast imaging only to evaluate for enhancement of the conus and rule out underlying lesion, also to determine if steroids are improving the edema seen on initial MRI -may continue on steroid regimen for now if symptoms are improving, eventually will require a taper with appropriate sliding scale and PPI 2. bilateral parietal occipital strokes, right splenium stroke -suspect an underlying infectious/inflammatory etiology on aspirin and statin PT/OT eval DVT ppx awaiting further results of LP studies and repeat MRI for recommendations may benefit from acute rehab Problems: CARMEN ALLISON MD Sep 04, 2016 16:48
[2016-09-04 19:00] VITALS: BP 124/81; RESP 18
--- NOTE | 2016-09-04 19:01 | CONS ---
Date/Time of Note Date/Time of Note DATE: 09/04/16 TIME: 18:57 Assessment/Plan Assessment/Plan Additional Assessment/Plan Acute neurologic event associated with T12/L1 and a central normality as well resulting in lower extremity weakness as well as urinary retention and bowel issues. Patient has noted improvement in his ambulation since starting steroids Generally voiding function improves in parallel with lower extremity function. I recommend instructing the patient on self intermittent catheterization every 6 hours. He should avoid bladder over distention. Eventually he will need to learn this before going home. I would be happy to see him in the office as an outpatient This is been discussed with his attending nurse Consultation Date/Type/Reason Admit Date/Time Sep 01, 2016 at 12:45 Date of Consultation: Sep 04, 2016 Type of Consultation: Urology Reason for Consultation Urinary retention Hx of Present Illness 52-year-old [place]-speaking male. Translation 1 of the nurses on the brown Patient was admitted on September 01. He suffered a relatively acute onset of lower extremity numbness urinary retention. Required catheterization for large volume Think a repeated voiding trial also failed after hospitalization. Also is having some bowel issues He has had evaluation by neurology and neurosurgery. Appears to have some sort of acute inflammatory T12-L1 occurrence as well as some central neurologic phenomenon Patient denies any prior history of voiding difficulties or visits to urologist Denies history of urinary retention Denies history of hematuria infection or stone disease Past Medical History Medical History: no pertinent history Past Surgical History Past Surgical Hx: no surgical history Social History Alcohol Use: none Smoking Status: Former smoker Drug Use: none Exam/Review of Systems Vital Signs Vitals Vital Signs Date Time Temp Pulse Resp B/P Pulse Ox O2 Delivery O2 Flow Rate FiO2 09/04/16 07:15 98.3 71 18 131/85 97 09/01/16 15:14 Room Air Intake and Output 09/03/16 09/03/16 09/04/16 15:00 23:00 07:00 Intake Total 1820 ml 240 ml Output Total 1300 ml 500 ml Balance 520 ml -260 ml Exam Constitutional: alert, oriented, well developed Psych: no complaints Head: normocephalic Neck: non-tender Respiratory: normal air movement Gastrointestinal: soft Genitourinary - Male: nl penis, other (Catheter draining clear urine) Musculoskeletal: nl extremities to inspection Results Result Diagram: 09/04/16 0436 09/04/16 0436 Results 24 hrs Laboratory Tests Test 09/04/16 04:36 Anion Gap 19 H Basophils # 0.0 Basophils % 0.1 Blood Urea Nitrogen 20 Calcium Level 8.7 Carbon Dioxide Level 23 Chloride Level 103 Creatinine 0.64 Eosinophils # 0.0 Eosinophils % 0.0 Glucose Level 131 Hematocrit 45.9 Hemoglobin 16.2 Lymphocytes # 1.8 Lymphocytes % 13.7 L Magnesium Level 2.2 Mean Corpuscular Hemoglobin 32.9 Mean Corpuscular Hemoglobin Concent 35.3 Mean Corpuscular Volume 93.1 Mean Platelet Volume 10.6 H Monocytes # 0.4 Monocytes % 3.2 Neutrophils # 10.7 H Neutrophils % 82.3 H Nucleated Red Blood Cells # 0.0 Nucleated Red Blood Cells % 0.0 Phosphorus Level 3.8 Platelet Count 325 Potassium Level 3.9 Red Blood Count 4.93 Red Cell Distribution Width 13.0 Sodium Level 141 White Blood Count 13.0 #H Medications Medications Current Medications Ondansetron HCl (Zofran Inj) 4 mg Q6H PRN IV NAUSEA AND/OR VOMITING; Start 09/01 at 16:30 Acetaminophen (Tylenol Tab) 650 mg Q6H PRN PO PAIN LEVEL 1-3 OR FEVER; Start at 16:30 Acetaminophen/ Hydrocodone Bitart ([place] (5/325)) 1 tab Q6H PRN PO MODERATE PAIN LEVEL 4-6; Start 09/01/16 at 16:30 Morphine Sulfate (morphine) 2 mg Q4H PRN IV SEVERE PAIN LEVEL 7-10; Start at 16:30 Magnesium Hydroxide (Milk Of Mag) 30 ml DAILY PRN PO CONSTIPATION; Start at 16:30 Bisacodyl (Dulcolax) 5 mg DAILY PRN PO CONSTIPATION; Start 09/01/16 at 16:30 Famotidine (Pepcid) 20 mg Q12 PO Last administered on 09/04/16 08:13; Admin Dose 20 MG; Start 09/01/16 at 21:00 Hydralazine HCl (Apresoline) 10 mg Q6H PRN IV SBP>160; Start 09/01/16 at 17:00 Dexamethasone (Decadron) 4 mg Q6 IV Last administered on 09/04/16 17:21; Admin Dose 4 MG; Start 09/01/16 at 18:00 Docusate Sodium (Colace) 100 mg TID PO Last administered on 09/04/16 08:13; Admin Dose 100 MG; Start 09/02/16 at 14:00 Polyethylene Glycol (Miralax) 17 gm BID PO Last administered on 09/03/16 08:21 ; Admin Dose 17 GM; Start 09/02/16 at 21:00 Atorvastatin Calcium (Lipitor) 40 mg HS PO Last administered on 09/03/16 21:29 ; Admin Dose 40 MG; Start 09/02/16 at 21:00 Aspirin (Halfprin) 81 mg DAILY PO Last administered on 09/04/16 08:13; Admin Dose 81 MG; Start 09/04/16 at 09:00 Lorazepam (Ativan) 0.5 mg Q8H PRN PO ANXIETY Last administered on 09/03/16 16: 04; Admin Dose 0.5 MG; Start 09/03/16 at 16:00 Zolpidem Tartrate (Ambien) 5 mg HS PRN PO INSOMNIA Last administered on 21:32; Admin Dose 5 MG; Start 09/03/16 at 16:00 Cholecalciferol (Vitamin D) 2,000 unit DAILY PO Last administered on 09/04/16 08:13; Admin Dose 2,000 UNIT; Start 09/04/16 at 09:00 EVE LEBLANC MD Sep 04, 2016 19:01
[2016-09-04] MEDS: ATORVASTATIN 40 MG TAB PO SCH (21:55)
[2016-09-04] MEDS: ZOLPIDEM 5 MG TAB PO PRN (21:55)
[2016-09-05] MEDS: DEXAMETHASONE 4 MG/ML 1 ML INJ IV SCH ×5 (00:14→23:21)
[2016-09-05 05:30] LABS: ADD SCAN DIFF NO
[2016-09-05 05:37] LABS: BASOPHILS % 0.1 % (0.0-2.0); HEMATOCRIT 44.7 % (42.0-52.0); HEMOGLOBIN 15.9 g/dl (14.0-18.0); LYMPHOCYTES % 14.9 % (15.0-51.0); MEAN CORPUSCULAR HEMOGLOBIN 32.9 pg (29.0-33.0); MEAN CORPUSCULAR HGB CONC 35.6 g/dl (32.0-37.0); MEAN CORPUSCULAR VOLUME 92.5 fl (82.0-101.0); MEAN PLATELET VOLUME 10.7 fl (7.4-10.4); MONOCYTE # 0.6 10^3/ul (0.3-0.9); MONOCYTES % 4.4 % (0.0-11.0); NEUTROPHIL # 10.7 10^3/ul (1.6-7.5); NEUTROPHILS % 79.5 % (39.0-77.0); PLATELET COUNT 322 10^3/UL (140-415); RED BLOOD COUNT 4.83 10^6/ul (4.70-6.10); RED CELL DISTRIBUTION WIDTH 12.9 % (11.5-14.5); WHITE BLOOD COUNT 13.5 10^3/ul (4.8-10.8)
[2016-09-05 05:48] LABS: POTASSIUM 3.9 mmol/L (3.5-5.1)
[2016-09-05 05:50] LABS: CREATININE 0.66 mg/dl (0.61-1.24)
[2016-09-05 05:51] LABS: CALCIUM 8.5 mg/dl (8.4-10.2); MAGNESIUM 2.1 mg/dl (1.7-2.5)
[2016-09-05 05:54] LABS: PHOSPHORUS 4.6 mg/dl (2.5-4.9)
[2016-09-05 07:38] VITALS: BP 124/82; RESP 18
[2016-09-05] MEDS: FAMOTIDINE 20 MG TAB PO SCH ×2 (08:09→20:46)
[2016-09-05] MEDS: DOCUSATE SODIUM 100 MG CAP PO SCH ×2 (08:09→20:46)
[2016-09-05] MEDS: CHOLECALCIFEROL 2,000 UNIT CAP PO SCH (08:09)
[2016-09-05] MEDS: ASPIRIN (EC) 81 MG TAB PO SCH (08:09)
[2016-09-05] MEDS: POLYETHYLENE GLYCOL 17 GM PACKET PO SCH ×2 (08:10→20:52)
[2016-09-05 10:30] LABS: HERPES SIMPLEX 1 DNA NOT DETECTED; HERPES SIMPLEX 2 DNA NOT DETECTED; HERPES SIMPLEX PCR SOURCE CEREBROSPINAL FLUID
--- NOTE | 2016-09-05 15:04 | PN ---
Date/Time of Note Date/Time of Note DATE: 09/05/16 TIME: 14:59 Assessment/Plan VTE Prophylaxis VTE Prophylaxis Intervention: SCD's Lines/Catheters IV [facility]ter [facility] (from [facility]): Saline Lock Urinary Cath still in place: No Assessment/Plan Chief Complaint/Hosp Course Assessment and plan 1. Acute onset of bilateral lower extremity paresthesia with urinary retention. MRI of the brain did show abnormality at the conus medullaris with probable minimal expansion, suspect traffic representative of infectious/inflammatory etiology. Patient was seen by neurosurgeon who recommended no surgical intervention. Patient currently being followed by neurologist. We'll resume patient on Decadron per neurologist recommendations. Tentative plan for lumbar spine MRI with contrast per neurologist recommendations. 2. Urinary retention. Urologist following. Patient does have some improvement with this issue. Patient was recommended for self intermittent catheterization every 6 hours should he have bladder distention. Tentative plan for outpatient follow-up with urology. 3. 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 Cont on antiplatelet tharapy and statin 4. Dyslipidemia. Continue on statin DVT prophylaxis: SCDs GERD prophylaxis: H2 denise Disposition and plan: Discussed with neurology. We'll get MRI of lumbar spine with contrast for further delineation of patient paresthesia. We'll follow-up Discussed plan of care with Dr. Hsu Problems: Subjective 24 Hr Interval Summary Free Text/Dictation Still reports having weakness on upper portions of bilateral lower extremities as well as lower abdominal area. Exam/Review of Systems Vital Signs Vitals Vital Signs Date Time Temp Pulse Resp B/P Pulse Ox O2 Delivery O2 Flow Rate FiO2 09/05/16 07:38 98.1 18 124/82 99 09/04/16 19:00 71 09/01/16 15:14 Room Air Intake and Output 09/04/16 09/04/16 09/05/16 15:00 23:00 07:00 Intake Total 1920 ml 680 ml Output Total 1600 ml 1650 ml Balance 320 ml -970 ml Exam General: No acute signs or symptoms of distress Eyes: pupils equal round, Anicteric sclera Neck: Supple nontender, no JVD Cardiac: S1, S2 auscultated, regular rhythm and rate Pulmonary: No coarse rhonchi or breathing auscultated GI: Abdomen soft nontender nondistended, bowel sounds active Extremities: No edema bilateral lower extremities Skin: Clean dry and intact Neurologic: Does report having some numbness on upper portions of bilateral lower extremities as well as lower abdominal area. Results Result Diagram: 09/05/1644909/05/16 0450 Results 24 hrs Laboratory Tests Test 09/05/16 04:50 Anion Gap 17 H Basophils # 0.0 Basophils % 0.1 Blood Urea Nitrogen 19 Calcium Level 8.5 Carbon Dioxide Level 24 Chloride Level 101 Creatinine 0.66 Eosinophils # 0.0 Eosinophils % 0.0 Glucose Level 121 Hematocrit 44.7 Hemoglobin 15.9 Lymphocytes # 2.0 Lymphocytes % 14.9 L Magnesium Level 2.1 Mean Corpuscular Hemoglobin 32.9 Mean Corpuscular Hemoglobin Concent 35.6 Mean Corpuscular Volume 92.5 Mean Platelet Volume 10.7 H Monocytes # 0.6 Monocytes % 4.4 Neutrophils # 10.7 H Neutrophils % 79.5 H Nucleated Red Blood Cells # 0.0 Nucleated Red Blood Cells % 0.0 Phosphorus Level 4.6 Platelet Count 322 Potassium Level 3.9 Red Blood Count 4.83 Red Cell Distribution Width 12.9 Sodium Level 138 White Blood Count 13.5 H Medications Medications Current Medications Ondansetron HCl (Zofran Inj) 4 mg Q6H PRN IV NAUSEA AND/OR VOMITING; Start 09/01 at 16:30 Acetaminophen (Tylenol Tab) 650 mg Q6H PRN PO PAIN LEVEL 1-3 OR FEVER; Start at 16:30 Acetaminophen/ Hydrocodone Bitart ([place] (5/325)) 1 tab Q6H PRN PO MODERATE PAIN LEVEL 4-6 Last administered on 09/05/16 00:18; Admin Dose 1 TAB; Start 09/01/16 at 16:30 Morphine Sulfate (morphine) 2 mg Q4H PRN IV SEVERE PAIN LEVEL 7-10; Start at 16:30 Magnesium Hydroxide (Milk Of Mag) 30 ml DAILY PRN PO CONSTIPATION; Start at 16:30 Bisacodyl (Dulcolax) 5 mg DAILY PRN PO CONSTIPATION; Start 09/01/16 at 16:30 Famotidine (Pepcid) 20 mg Q12 PO Last administered on 09/05/16 08:09; Admin Dose 20 MG; Start 09/01/16 at 21:00 Hydralazine HCl (Apresoline) 10 mg Q6H PRN IV SBP>160; Start 09/01/16 at 17:00 Dexamethasone (Decadron) 4 mg Q6 IV Last administered on 09/05/16 12:08; Admin Dose 4 MG; Start 09/01/16 at 18:00 Polyethylene Glycol (Miralax) 17 gm BID PO Last administered on 09/04/16 21:55 ; Admin Dose 17 GM; Start 09/02/16 at 21:00 Atorvastatin Calcium (Lipitor) 40 mg HS PO Last administered on 09/04/16 21:55 ; Admin Dose 40 MG; Start 09/02/16 at 21:00 Aspirin (Halfprin) 81 mg DAILY PO Last administered on 09/05/16 08:09; Admin Dose 81 MG; Start 09/04/16 at 09:00 Lorazepam (Ativan) 0.5 mg Q8H PRN PO ANXIETY Last administered on 09/03/16 16: 04; Admin Dose 0.5 MG; Start 09/03/16 at 16:00 Zolpidem Tartrate (Ambien) 5 mg HS PRN PO INSOMNIA Last administered on 21:55; Admin Dose 5 MG; Start 09/03/16 at 16:00 Cholecalciferol (Vitamin D) 2,000 unit DAILY PO Last administered on 09/05/16 08:09; Admin Dose 2,000 UNIT; Start 09/04/16 at 09:00 Docusate Sodium (Colace) 200 mg BID PO Last administered on 09/05/16 08:09; Admin Dose 200 MG; Start 09/04/16 at 21:00 ROMAN OLIVA Sep 05, 2016 15:03
[2016-09-05 15:27] VITALS: BP 124/83; RESP 20
--- NOTE | 2016-09-05 15:56 | RADRPT ---
PROCEDURE: MRI lumbar spine without and with contrast CLINICAL INDICATION: back pain; weakness TECHNIQUE: Limited high-resolution MRI of the lumbar spine was performed utilizing the following s equences: axial T1/T2 weighted, axial and sagittal post contrast sequences were obtained after the a dministration of 10 cc of ProHance Gadolinium without reported complications. COMPARISON: Lumbar spine MRI 09/01/2016 FINDINGS: Abnormal T2 hyperintense signal is again seen within the conus medullaris. No mass-like intraspinal enhancement is identified. There is curvilinear enhancement along the anterior and posterior aspec t of the lower thoracic cord/conus felt most likely related to enhancement of the associated spinal vasculature. The conus medullaris terminates at L1. T12 - L1: The disk is preserved in height. There is no significant disk protrusion, spinal canal or foraminal stenosis. L1 - L2: The disk is preserved in height. There is no significant disk protrusion, spinal canal or foraminal stenosis. L2 - L3: The disk is preserved in height. There is no significant disk protrusion, spinal canal or foraminal stenosis. L3 - L4: Small disk bulge. There is with mild to moderate bilateral foraminal narrowing. No sign ificant spinal canal stenosis. L4 - L5: Small disk bulge and central disk annular fissure . There is moderate right and mild lef t foraminal narrowing. No significant spinal canal stenosis. L5 - S1: Discogenic degenerative endplate changes are seen to the anterior aspect of the disk spac e. No significant spinal canal stenosis. Marginal disk osteophytes and facet arthropathy cause mode rate to severe bilateral foraminal narrowing. IMPRESSION: Abnormal T2 hyperintense signal is again seen within the conus medullaris. The differential conside rations again include ischemia, an infectios/inflammatory myelitis, or demyelination. No mass-like e nhancement identified. RPTAT: AA .Abdiel Jerez MD, MD Date Time Electronically viewed and signed by .Abdiel Jerez MD, on 09/05/2016 15:56 .T/
[2016-09-05 20:00] VITALS: BP 115/78; PULSE 77; RESP 19
[2016-09-05] MEDS: ATORVASTATIN 40 MG TAB PO SCH (20:46)
[2016-09-05] MEDS: ZOLPIDEM 5 MG TAB PO PRN (23:21)
[2016-09-06 05:41] LABS: ADD SCAN DIFF NO
[2016-09-06 05:53] LABS: BASOPHILS % 0.2 % (0.0-2.0); HEMATOCRIT 44.8 % (42.0-52.0); HEMOGLOBIN 16.1 g/dl (14.0-18.0); LYMPHOCYTES # 1.9 10^3/ul (0.8-2.9); LYMPHOCYTES % 16.2 % (15.0-51.0); MEAN CORPUSCULAR HEMOGLOBIN 32.9 pg (29.0-33.0); MEAN CORPUSCULAR HGB CONC 35.9 g/dl (32.0-37.0); MEAN CORPUSCULAR VOLUME 91.6 fl (82.0-101.0); MEAN PLATELET VOLUME 10.7 fl (7.4-10.4); MONOCYTE # 0.6 10^3/ul (0.3-0.9); MONOCYTES % 4.9 % (0.0-11.0); NEUTROPHILS % 76.9 % (39.0-77.0); PLATELET COUNT 343 10^3/UL (140-415); RED BLOOD COUNT 4.89 10^6/ul (4.70-6.10); RED CELL DISTRIBUTION WIDTH 12.8 % (11.5-14.5); WHITE BLOOD COUNT 11.7 10^3/ul (4.8-10.8)
[2016-09-06 06:01] LABS: POTASSIUM 3.9 mmol/L (3.5-5.1)
[2016-09-06 06:04] LABS: CREATININE 0.59 mg/dl (0.61-1.24)
[2016-09-06 06:05] LABS: CALCIUM 8.6 mg/dl (8.4-10.2)
[2016-09-06] MEDS: DEXAMETHASONE 4 MG/ML 1 ML INJ IV SCH ×4 (06:37→23:14)
[2016-09-06 07:57] VITALS: BP 114/80; RESP 18
[2016-09-06] MEDS: FAMOTIDINE 20 MG TAB PO SCH ×2 (08:24→20:21)
[2016-09-06] MEDS: CHOLECALCIFEROL 2,000 UNIT CAP PO SCH (08:24)
[2016-09-06] MEDS: DOCUSATE SODIUM 100 MG CAP PO SCH ×2 (08:24→20:20)
[2016-09-06] MEDS: ASPIRIN (EC) 81 MG TAB PO SCH (08:24)
[2016-09-06] MEDS: POLYETHYLENE GLYCOL 17 GM PACKET PO SCH (08:26)
--- NOTE | 2016-09-06 14:00 | PN ---
Date/Time of Note Date/Time of Note DATE: 09/06/16 TIME: 13:57 Assessment/Plan VTE Prophylaxis VTE Prophylaxis Intervention: SCD's Lines/Catheters IV [facility] Saline Lock Urinary Cath still in place: No Assessment/Plan Chief Complaint/Hosp Course Assessment and plan 1. Acute onset of bilateral lower extremity paresthesia with urinary retention. 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 Patient was seen by neurosurgeon who recommended no surgical intervention. Patient currently being followed by neurologist. We'll resume patient on Decadron per neurologist recommendations. Patient again status post MRI of lumbar spine with contrast that did show: - Abnormal T2 hyperintense signal is again seen within the conus medullaris. The differential considerations again include ischemia, an infectios/ inflammatory myelitis, or demyelination. No mass-like enhancement identified. Follow-up with neurology recommendations and physical therapy 2. Urinary retention. Urologist following. Patient does have some improvement with this issue. Patient was recommended for self intermittent catheterization every 6 hours should he have bladder distention. Patient educated per RN about self-catheterization. Patient to follow-up with urology as outpatient 3. 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 Cont on antiplatelet therapy and statin 4. Dyslipidemia. Continue on statin DVT prophylaxis: SCDs GERD prophylaxis: H2 denise Disposition and plan: Continue with physical therapy. Await neurology input. Still noted with some paresthesia on pelvic area. We'll await neuro recommendations Discussed plan of care with Dr. Hsu Problems: Subjective 24 Hr Interval Summary Free Text/Dictation Still with reported weakness and numbness on pelvic area. Reports little improvement on these areas Exam/Review of Systems Vital Signs Vitals Vital Signs Date Time Temp Pulse Resp B/P Pulse Ox O2 Delivery O2 Flow Rate FiO2 09/06/16 07:57 98.2 63 18 114/80 97 Intake and Output 09/05/16 09/05/16 09/06/16 15:00 23:00 07:00 Intake Total 1760 ml Output Total 1850 ml 600 ml Balance -90 ml -600 ml Exam General: Comfortable at present. Eyes: Anicteric sclera Neck: No JVD seen Cardiac: Regular rate Pulmonary: No obvious wheezing or rhonchi GI: Soft nontender Extremities: No edema bilateral lower extremities Skin: Clean dry and intact Neurologic: Patient still reports of numbness on pelvic area and reports some "unawareness" with voiding Results Result Diagram: 09/06/1652109/06/16521 Results 24 hrs Laboratory Tests Test 09/06/16 05:22 Anion Gap 17 H Basophils # 0.0 Basophils % 0.2 Blood Urea Nitrogen 21 H Calcium Level 8.6 Carbon Dioxide Level 24 Chloride Level 103 Creatinine 0.59 L Eosinophils # 0.0 Eosinophils % 0.0 Glucose Level 124 Hematocrit 44.8 Hemoglobin 16.1 Lymphocytes # 1.9 Lymphocytes % 16.2 Mean Corpuscular Hemoglobin 32.9 Mean Corpuscular Hemoglobin Concent 35.9 Mean Corpuscular Volume 91.6 Mean Platelet Volume 10.7 H Monocytes # 0.6 Monocytes % 4.9 Neutrophils # 9.0 H Neutrophils % 76.9 Nucleated Red Blood Cells # 0.0 Nucleated Red Blood Cells % 0.0 Platelet Count 343 Potassium Level 3.9 Red Blood Count 4.89 Red Cell Distribution Width 12.8 Sodium Level 140 White Blood Count 11.7 H Medications Medications Current Medications Ondansetron HCl (Zofran Inj) 4 mg Q6H PRN IV NAUSEA AND/OR VOMITING; Start 09/01 at 16:30 Acetaminophen (Tylenol Tab) 650 mg Q6H PRN PO PAIN LEVEL 1-3 OR FEVER; Start at 16:30 Acetaminophen/ Hydrocodone Bitart ([place] (5/325)) 1 tab Q6H PRN PO MODERATE PAIN LEVEL 4-6 Last administered on 09/05/16 00:18; Admin Dose 1 TAB; Start 09/01/16 at 16:30 Morphine Sulfate (morphine) 2 mg Q4H PRN IV SEVERE PAIN LEVEL 7-10; Start at 16:30 Magnesium Hydroxide (Milk Of Mag) 30 ml DAILY PRN PO CONSTIPATION; Start at 16:30 Bisacodyl (Dulcolax) 5 mg DAILY PRN PO CONSTIPATION; Start 09/01/16 at 16:30 Famotidine (Pepcid) 20 mg Q12 PO Last administered on 09/06/16 08:24; Admin Dose 20 MG; Start 09/01/16 at 21:00 Hydralazine HCl (Apresoline) 10 mg Q6H PRN IV SBP>160; Start 09/01/16 at 17:00 Dexamethasone (Decadron) 4 mg Q6 IV Last administered on 09/06/16 12:26; Admin Dose 4 MG; Start 09/01/16 at 18:00 Atorvastatin Calcium (Lipitor) 40 mg HS PO Last administered on 09/05/16 20:46 ; Admin Dose 40 MG; Start 09/02/16 at 21:00 Aspirin (Halfprin) 81 mg DAILY PO Last administered on 09/06/16 08:24; Admin Dose 81 MG; Start 09/04/16 at 09:00 Lorazepam (Ativan) 0.5 mg Q8H PRN PO ANXIETY Last administered on 09/03/16 16: 04; Admin Dose 0.5 MG; Start 09/03/16 at 16:00 Zolpidem Tartrate (Ambien) 5 mg HS PRN PO INSOMNIA Last administered on 23:21; Admin Dose 5 MG; Start 09/03/16 at 16:00 Cholecalciferol (Vitamin D) 2,000 unit DAILY PO Last administered on 09/06/16 08:24; Admin Dose 2,000 UNIT; Start 09/04/16 at 09:00 Docusate Sodium (Colace) 200 mg BID PO Last administered on 09/06/16 08:24; Admin Dose 200 MG; Start 09/04/16 at 21:00 ROMAN OLIVA Sep 06, 2016 14:00
--- NOTE | 2016-09-06 15:14 | CONS ---
Date/Time of Note Date/Time of Note DATE: 09/06/16 TIME: 15:05 Consult Date/Type/Reason Admit Date/Time Sep 01, 2016 at 12:45 Initial Consult Date 09/02/16 Type of Consultation: Neurology Reason for Consultation acute onset of LE sensory, numbness urinary incontinence T12-L1 edema possible inflammatory etiology vs. ischemia Ordering Provider: JUICE SESAY NP Subjective numbness mildly improving self-catheterization for urinary incontinence no sensation in genital region and buttox Objective Vital Signs Date Time Temp Pulse Resp B/P Pulse Ox O2 Delivery O2 Flow Rate FiO2 09/06/16 07:57 98.2 63 18 114/80 97 Intake and Output 09/05/16 09/05/16 09/06/16 15:00 23:00 07:00 Intake Total 1760 ml Output Total 1850 ml 600 ml Balance -90 ml -600 ml awake and alert oriented to self, hospital, and date bhutanese speaking primarily, absent aphasia follows commands well no neglect no rashes on skin CN: HARDY, VFF, EOMI no nystagmus no facial asymmetry palate upgoing uvula midline scm/trap intact tongue midline Motor: strength is full and equal in all extremities 5/5 throughout in LE as well no atrophy normal muscle bulk and tone, decreased rectal tone Sensory: no sensory level appreciated throughout abdomen or back decreased pin prick sensation below waist on bilateral buttox region as well as posterior/lateral thighs up to the knees inner thigh sensation is intact to PP , decreased sensation in L1 and S1,S2 dermatomal region Reflexes 1+ UE, 1+ KJ, trace AJ toes are downgoing Results/Medications Result Diagram: 09/06/1652109/06/16521 Results 24 hrs Laboratory Tests Test 09/06/16 05:22 Anion Gap 17 H Basophils # 0.0 Basophils % 0.2 Blood Urea Nitrogen 21 H Calcium Level 8.6 Carbon Dioxide Level 24 Chloride Level 103 Creatinine 0.59 L Eosinophils # 0.0 Eosinophils % 0.0 Glucose Level 124 Hematocrit 44.8 Hemoglobin 16.1 Lymphocytes # 1.9 Lymphocytes % 16.2 Mean Corpuscular Hemoglobin 32.9 Mean Corpuscular Hemoglobin Concent 35.9 Mean Corpuscular Volume 91.6 Mean Platelet Volume 10.7 H Monocytes # 0.6 Monocytes % 4.9 Neutrophils # 9.0 H Neutrophils % 76.9 Nucleated Red Blood Cells # 0.0 Nucleated Red Blood Cells % 0.0 Platelet Count 343 Potassium Level 3.9 Red Blood Count 4.89 Red Cell Distribution Width 12.8 Sodium Level 140 White Blood Count 11.7 H Medications Current Medications Ondansetron HCl (Zofran Inj) 4 mg Q6H PRN IV NAUSEA AND/OR VOMITING; Start 09/01 at 16:30 Acetaminophen (Tylenol Tab) 650 mg Q6H PRN PO PAIN LEVEL 1-3 OR FEVER; Start at 16:30 Acetaminophen/ Hydrocodone Bitart ([place] (5/325)) 1 tab Q6H PRN PO MODERATE PAIN LEVEL 4-6 Last administered on 09/05/16 00:18; Admin Dose 1 TAB; Start 09/01/16 at 16:30 Morphine Sulfate (morphine) 2 mg Q4H PRN IV SEVERE PAIN LEVEL 7-10; Start at 16:30 Magnesium Hydroxide (Milk Of Mag) 30 ml DAILY PRN PO CONSTIPATION; Start at 16:30 Bisacodyl (Dulcolax) 5 mg DAILY PRN PO CONSTIPATION; Start 09/01/16 at 16:30 Famotidine (Pepcid) 20 mg Q12 PO Last administered on 09/06/16 08:24; Admin Dose 20 MG; Start 09/01/16 at 21:00 Hydralazine HCl (Apresoline) 10 mg Q6H PRN IV SBP>160; Start 09/01/16 at 17:00 Dexamethasone (Decadron) 4 mg Q6 IV Last administered on 09/06/16 12:26; Admin Dose 4 MG; Start 09/01/16 at 18:00 Atorvastatin Calcium (Lipitor) 40 mg HS PO Last administered on 09/05/16 20:46 ; Admin Dose 40 MG; Start 09/02/16 at 21:00 Aspirin (Halfprin) 81 mg DAILY PO Last administered on 09/06/16 08:24; Admin Dose 81 MG; Start 09/04/16 at 09:00 Lorazepam (Ativan) 0.5 mg Q8H PRN PO ANXIETY Last administered on 09/03/16 16: 04; Admin Dose 0.5 MG; Start 09/03/16 at 16:00 Zolpidem Tartrate (Ambien) 5 mg HS PRN PO INSOMNIA Last administered on 23:21; Admin Dose 5 MG; Start 09/03/16 at 16:00 Cholecalciferol (Vitamin D) 2,000 unit DAILY PO Last administered on 09/06/16 08:24; Admin Dose 2,000 UNIT; Start 09/04/16 at 09:00 Docusate Sodium (Colace) 200 mg BID PO Last administered on 09/06/16 08:24; Admin Dose 200 MG; Start 09/04/16 at 21:00 Assessment/Plan Chief Complaint/Hosp Course 50 year old male with hyperlipidemia presenting with sudden onset of LE numbness below the waist with urinary incontinence, initiated on steroids. Spine imaging suggestive of edema at T12/L1 possible inflammatory/demyelinating etiology pending further workup. MRI Brain also shows punctate bilateral infarcts unclear etiology. MRA Head and Neck wnl. ECHO with bubble normal EF, no PFO RPR : negative HIV negative CSF studies: WBC: 6, Protein: 56 mild protein elevation, Glucose: 78, RBC: 0 HSV negative Recommendations: 1. T12/L1 edema -repeat MRI Lumbar Spine shows T2 hyperintensity, no abnormal enhancement etiology suggested is possibly ischemic vs inflammatory , do not suspect demyelinating cause -several studies pending from CSF, cultures are pending, cytology, IgG index, oligoclonal bands VZV, LEROY, VDRL - repeat MRI Lumbar spine post contrast imaging only to evaluate for enhancement of the conus and rule out underlying lesion, also to determine if steroids are improving the edema seen on initial MRI -switch to oral steroids, Medrol dose pack may be appropriate recommend he follow up with Rheumatology as outpatient as well for further testing, 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 bilateral parietal occipital strokes, right splenium stroke -suspect an underlying infectious/inflammatory etiology possible VZV on aspirin and statin PT/OT eval DVT ppx discharge planning for home vs.rehab Problems: CARMEN ALLISON MD Sep 06, 2016 15:14
[2016-09-06] MEDS: ATORVASTATIN 40 MG TAB PO SCH (20:21)
[2016-09-06 20:37] VITALS: BP 131/87; RESP 20
[2016-09-06] MEDS: ZOLPIDEM 5 MG TAB PO PRN (23:03)
[2016-09-07] MEDS: DEXAMETHASONE 4 MG/ML 1 ML INJ IV SCH ×3 (05:21→17:10)
[2016-09-07 06:08] LABS: ADD SCAN DIFF NO
[2016-09-07 06:24] LABS: BASOPHILS % 0.1 % (0.0-2.0); HEMATOCRIT 48.5 % (42.0-52.0); HEMOGLOBIN 17.2 g/dl (14.0-18.0); LYMPHOCYTES % 13.9 % (15.0-51.0); MEAN CORPUSCULAR HEMOGLOBIN 32.6 pg (29.0-33.0); MEAN CORPUSCULAR HGB CONC 35.5 g/dl (32.0-37.0); MEAN CORPUSCULAR VOLUME 91.9 fl (82.0-101.0); MEAN PLATELET VOLUME 10.3 fl (7.4-10.4); MONOCYTE # 0.9 10^3/ul (0.3-0.9); MONOCYTES % 5.9 % (0.0-11.0); NEUTROPHIL # 11.3 10^3/ul (1.6-7.5); NEUTROPHILS % 77.6 % (39.0-77.0); PLATELET COUNT 359 10^3/UL (140-415); RED BLOOD COUNT 5.28 10^6/ul (4.70-6.10); RED CELL DISTRIBUTION WIDTH 12.9 % (11.5-14.5); WHITE BLOOD COUNT 14.5 10^3/ul (4.8-10.8)
[2016-09-07 06:24] LABS: CREATININE 0.7 mg/dl (0.61-1.24)
[2016-09-07 06:25] LABS: CALCIUM 8.7 mg/dl (8.4-10.2)
[2016-09-07 07:58] VITALS: BP 119/79; RESP 18
[2016-09-07] MEDS: CHOLECALCIFEROL 2,000 UNIT CAP PO SCH (08:14)
[2016-09-07] MEDS: DOCUSATE SODIUM 100 MG CAP PO SCH (08:14)
[2016-09-07] MEDS: ASPIRIN (EC) 81 MG TAB PO SCH (08:15)
[2016-09-07] MEDS: FAMOTIDINE 20 MG TAB PO SCH (08:15)
[2016-09-07 15:39] LABS: HSV 1 IGG ANTIBODY 17.7 index; HSV 2 IGG ANTIBODY 7.06 index
[2016-09-07] MEDS ORDERED: CHOL20003 PO (15:39)
[2016-09-07] MEDS ORDERED: MED4DP PO (15:39)
[2016-09-07] MEDS ORDERED: ASPI-664 PO (15:39)
[2016-09-07] MEDS ORDERED: ATOR40TA68 PO (15:39)
--- NOTE | 2016-09-07 15:43 | PDOCDIS ---
Discharge Instructions DIAGNOSIS Discharge Diagnosis: 1. Lower extremity sensory numbness from suspect inflammatory etiology CONDITION Patient Condition: Stable HOME CARE INSTRUCTIONS: Special Diet: low fat / chol FOLLOW UP/APPOINTMENTS Appointments 1. Follow up with Dr. Sacha Mckeon in one week ROMAN OLIVA Sep 07, 2016 15:43
== END 2016-09-07 18:20 | disposition home health service (06) | DRG 91 ==
LOC: E/R 05:02 → MS2 12:45 → UNDOADMIN 16:17 → MS2 09-05 17:55
PROVIDERS: ADMIT Family Medicine; ATTEND Family Medicine
PROC: 009U3ZX Drainage of Spinal Canal, Percutaneous Approach, Diagnostic (ICD-10-PCS; principal; 2016-09-02)
DX: G95.19 Other vascular myelopathies (principal); I63.9 Cerebral infarction, unspecified; R33.9 Retention of urine, unspecified; R20.9 Unspecified disturbances of skin sensation; E78.5 Hyperlipidemia, unspecified; N39.490 Overflow incontinence
CPT/HCPCS: 36415; 70200; 70544; 70549; 70553; 71010; 72131; 72146; 72147; 72148; 72149; 72156; 80048; 80053; 80061; 80307; 81003; 82040; 82042; 82164; 82652; 82784; 82945; 83036; 83615; 83735; 84100; 84157; 84439; 84443; 85025; 85610; 85651; 85730; 86140; 86592; 86692; 86703; 86781; 86787; 86850; 86900; 86901; 87040; 87070; 87086; 87102; 87529; 88104; 89050; 90686; 93005; 93306; 93880; 96374; 96375; 97116; 97162; 97530; A4310; J1100; J2270; J3480; J7030

== ENCOUNTER 2016-09-15 11:14 | Outpatient (CLI) | payer MEDICAID ==
[~2016-09-15] VITALS: Ht 167.6 cm; Wt 81.4 kg
[~2016-09-15 11:14] MED LIST: ASPI-664 PO; ATOR40TA68 PO; CHOL20003 PO; MED4DP PO
[2016-09-15 11:18] VITALS: BP 133/79; PULSE 89; RESP 18; Ht 167.6 cm; Wt 81.4 kg
--- NOTE | 2016-09-15 11:30 | PN ---
Date/Time of Note Date/Time of Note DATE: 09/15/16 TIME: 11:30 Outpatient Progress Note Chief Complaint Abdominal discomfort/urinary retention/back pain/hyperlipidemia HPI Abdominal pain/patient has occasional abdominal discomfort, mostly in the lower part of the abdomen, no fever or chill, no history of gallstone, patient has history of fever or retention, no nausea vomiting, hematemesis melena, Urinary retention/patient has a urinary retention, patient still has difficulty in urination, patient has to catheterize every so many hours, no fever or chill , patient has slight burning occasionally, Back pain/patient has minimal back discomfort, no tingling or numbness, pain has not changed recently, Hyperlipidemia/no xanthoma, on medication, no side effect of medication, Review of Systems Const: [No Fever, no chills, no Wt. loss, no Fatigue, normal appetite, no diaphoresis.] Eyes: [No pain, no discharge, no redness, no visual change, no foreign body.] ENT: [No pain, no bleeding, no congestion, no sore throat, no dysphagia, no discharge or rhinitis.] Lymph: [No adenopathy, no tender nodes, no lymphedema.] Resp: [No SOB, no cough, no sputum, no wheezing, no chest pain.] CV: [No chest pain, no palpitaions, no CALERO, no PND, no edema.] GI: [Normal appetite, no pain, no nausea, no vomiting, no diarrhea, no blood, no constipation.] : [No frequency, no urgency, no dysuria, no hematuria, no flank pain, no discharge, no bleeding. Patient has suprapubic distention or discomfort off and on,] Musc: [No bone/joint pain, no back pain, no neck pain, no knee pain, no restricted ROM.] Skin: [No rash, no skin lesions, no erythema, no laceration, no bruising, no pruritus.] Neuro: [No CANTRELL, no dizziness, no syncope, no seizure, no focal-weakness.] Endo: [No polyuria, no polydypsia, no dry-skin, no temp-intolerance.] Psych: [No hallucinations, no depression, no anxiety, no suicidal ideation.] Ext: [No edema, no pain, no ulcer, no weakness.] Physical Exam Vital Signs Date Time Temp Pulse Resp B/P Pulse Ox O2 Delivery O2 Flow Rate FiO2 09/15/16 11:18 99.2 89 18 133/79 99 Room Air General Appearance: A [50] year-old [male] [who appears well-developed, well- nourished, in no acute distress.] HEENT: [Head normocephalic, atraumatic. Pupils equal, round, reactive to light and accommodate. Sclerae are no jaundice. Nasal turbinates pink without erythema or nasal discharge. Mucous membranes pink and moist without lesions. Oropharynx clear without any exudate or discharge.] NECK: [Supple. Trachea midline, No thyromegaly, No cervical lymphadenopathy, No mass, No carotid bruits, No JVD, Carotid pulses 2+ bilaterally.] PULMONARY: [Clear to auscultaion bilaterally, No retractions, Chest expansion symmetric bilaterally, no rales, no ronchi, no dulness on percussion.] CARDIAC: [Normal SI and S2, Regular rate and rythm, no murmur, gallop, or rub.] GASTROINTESTINAL: [Abdomen is soft, non-tender, Non Rigid, No distention, Positive bowel sounds x4 quadrants, Liver normal. Patient has abdominal pain, patient has suprapubic occasional distention, and discomfort, relieved with catheterization, patient still has urinary retention,] SKIN: [Warm, dry, no rash, no bruise, no echmosis.] EXTREMITIES: [Bilateral lower extremities normal, no edema, no phlabitus, pulse palpable, no contracture.] MUSCULOSKELETAL: [Spine Normal, Non-tender, Normal range of motion, No swelling , no deformity, no clubbing, or cyanosis, the patient has no edema to bilateral lower extremities, dorsalis pedis pulses palpable bilaterally.] NEUROLOGIC: [The patient is awake, alert, oriented, responding to yes/no questions appropriately, moving all extremities, cranial nerve intact, normal strenght, normal power, normal coordination, normal gait.] Allergies Coded Allergies: No Known Drug Allergy (Verified Allergy, Unknown, 07/25/14) PMH Urinary retention/back pain/ Social Hx No smoking or drinking, no drugs, Family Hx Noncontributory Assessment/Plan Impression Abdominal discomfort resolved/urinary retention/back pain/hyperlipidemia Plan Continue all supportive care, continue all medication, patient does in and out catheterization, Patient has slight urgency, and burning, so we'll get UA culture and sensitivity , Patient encouraged to follow with the primary care physician, If above symptoms persist or patient may need a bladder training and urology consultation which he had edema hospital, Medications Home Meds Active Scripts Cholecalciferol (Vitamin D3) (VITAMIN D-3) 2,000 Unit Capsule, 2000 UNIT PO DAILY for 30 Days, CAP Prov:ROMAN OLIVA 09/07/16 Atorvastatin* (Atorvastatin*) 40 Mg Tablet, 40 MG PO HS for 30 Days, TAB Prov:ROMAN OLIVA 09/07/16 Aspirin* (Aspirin* EC) 81 Mg Tablet.dr, 81 MG PO DAILY for 30 Days Prov:ROMAN OLIVA 09/07/16 Discontinued Scripts Methylprednisolone* (Medrol* DOSE PACK) 4 Mg/Dose-Pack Tab.ds.pk, 4 MG PO . DIRECTED, #1 PACKET Prov:ROMAN OLIVA 09/07/16 KAITLIN HAWK MD Sep 15, 2016 11:30
== END 2016-09-15 16:26 | disposition home or self-care (01) ==
LOC: DCC 11:14
PROVIDERS: ATTEND Internal Medicine
DX: R10.9 Unspecified abdominal pain (principal); R33.9 Retention of urine, unspecified; M54.9 Dorsalgia, unspecified; E78.5 Hyperlipidemia, unspecified
CPT/HCPCS: G0463